=== PATIENT | male | born 1945 | race American Indian/Alaskan Native ===

== ENCOUNTER 2016-07-22 13:39 | Emergency (ER) | payer OTHER, MEDICARE ==
--- NOTE | 2016-07-22 14:21 | CT ---
CLINICAL HISTORY: 71-year-old diabetic male smoker with left upper extremity weakness. SCAN TECHNIQUE: Volume acquisition of data from a semiemergent unenhanced CT scan of the head and br ain obtained with the patient lying supine on the Siemens multislice CT scanner [place], [place]. All data archived in the PAC system for storage, reformatting and study . INTERPRETATION: 1. Uniformly thick bony calvarium and symmetric clear pneumatization of the mastoid/paranasal sinuse s. No sign of skull fracture, underlying brain contusion or epidural/subdural hematoma. 2. Atrophy pattern symmetric with underlying mirror-image normal ventricular system. 3. No new supratentorial or posterior fossa mass lesion identified since 12 March 2016. 4. Scattered areas of decreased attenuation throughout the periventricular white matter cerebrum araseli racteristic of chronic microvascular multi-infarct ischemic disease (similar lesions cerebellum on t he left) also unchanged. 5. No sign of acute intracerebral/intraventricular/subarachnoid bleed. CONCLUSION: Chronic microvascular multi-infarct ischemic changes. No new evidence of intracranial mass, hydrocephalus or acute bleed.
[2016-07-22 14:25] LABS: CHLORIDE,CL 98 mmol/L (101-111); SODIUM,NA 130 mmol/L (135-145)
--- NOTE | 2016-07-22 14:32 | EDM.PDOC ---
ED HPI NEURO - General Chief Complaint: Neurological Problem Stated Complaint: IN BY AMBULANCE Time Seen by Provider: 07/22/16 13:45 Source of Information: Reports: Patient History Limitations: Reports: No limitations - History of Present Illness INITIAL COMMENTS - FREE TEXT/NARRATIVE: patient complained of sudden onset of left upper extremity weakness. Patient denies headache or neck ache. Notes weakness with his arm and inability to talk to her lift up. 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 Unable to do biceps movement. Notes paresthesia/tingling of the upper extremity. No swelling or abnormal sensation to the wrist or fingers. Denies any recent trauma or fall. Denies difficulty with swallowing. No complaints of headache or vision change. No neck pain. No chest pain. Patient denies any new medications. He denies sleeping abnormally such as injury in his arm or his neck. He denies vision change denies headache. Denies chest pain or palpitations. Denies amaurosis fugax. No loss of hearing. Unsure if he has ever had carotid ultrasound. Timing/Duration: Reports: Minutes:, Constant, Sudden onset Location (Neuro Complaint): Reports: lower extremity, left Quality (Neuro Complaint): Reports: tingling, weakness Severity: moderate Associated Symptoms: Denies: confusion, headaches, shortness of breath, syncope , chest pain, cough, diaphoresis, nausea/vomiting - Related Data Allergies/ADRs: Allergies Allergy/AdvReac Type Severity Reaction Status Date / Time No Known Allergies Allergy Verified 07/22/16 13:49 Home Meds: Home Meds Acetaminophen [Mapap] 650 mg PO TID PRN 03/12/16 [History] Citalopram [Celexa] 40 mg PO DAILY 03/12/16 [History] Gabapentin [Neurontin] 1,200 mg PO TID 03/12/16 [History] Lisinopril 10 mg PO DAILY 03/12/16 [History] Simvastatin [Zocor] 20 mg PO DAILY 03/12/16 [History] buPROPion [Wellbutrin] 100 mg PO BID 03/12/16 [History] metFORMIN HCl [Metformin HCl] 500 mg PO DAILY 03/12/16 [History] Albuterol Sulfate [Proair Respiclick] 1 puff INH Q6H PRN 07/22/16 [History] Alendronate [Fosamax] 70 mg PO Q7D@0600 07/22/16 [History] Budesonide/Formoterol [Symbicort 160-4.5 MCG] 2 puff INH BID 07/22/16 [History] Fluocinonide 1 applic TP BID PRN 07/22/16 [History] Fluticasone Propionate [Allergy Relief] 2 spray NASBOTH DAILY PRN 07/22/16 [ History] Insulin NPH/Insulin Reg,Human [NovoLIN 70-30] 36 - 40 unit SUBCUT ASDIRECTED [History] Lidocaine 5% [Lidoderm 5%] 700 mg TOP DAILY 07/22/16 [History] Loratadine [Allergy] 10 mg PO DAILY PRN 07/22/16 [History] Metoprolol Succinate 25 mg PO DAILY 07/22/16 [History] Pantoprazole Sodium 40 mg PO DAILY 07/22/16 [History] Zolpidem Tartrate 5 mg PO BEDTIME PRN 07/22/16 [History] Past Medical History Cardiovascular History: Reports: High cholesterol, Hypertension Gastrointestinal History: Reports: GERD Neurological History: Reports: Neuropathy, diabetic Psychiatric History: Reports: Depression, PTSD Endocrine/Metabolic History: Reports: Diabetes, type II - Past Surgical History Musculoskeletal Surgical History: Reports: Other (see below) Other Musculoskeletal Surgeries/Procedures:: Neuropathy. left ankle surgery Social & Family History - Tobacco Use Smoking Status *Q: Current Every Day Smoker Years of Tobacco use: 55 Packs/Tins Daily: 1 - Caffeine Use Caffeine Use: Reports: Coffee - Recreational Drug Use Recreational Drug Use: No ED ROS GENERAL - Review of Systems Review Of Systems: See Below Constitutional: Reports: no symptoms HEENT: Reports: No symptoms Respiratory: Reports: No Symptoms Cardiovascular: Reports: No symptoms Endocrine: Reports: no symptoms GI/Abdominal: Reports: No symptoms : Reports: no symptoms Musculoskeletal: Reports: no symptoms Skin: Reports: no symptoms Neurological: Reports: Numbness, Tingling, Weakness. Denies: Confusion, Dizziness, Pre-Existing Deficit, Seizure, Syncope, Tremors Psychiatric: Reports: No symptoms Hematologic/Lymphatic: Reports: no symptoms Immunologic: Reports: no symptoms ED EXAM, NEURO - Physical Exam Exam: See Below Exam Limited By: No limitations General Appearance: alert, WD/WN Eye Exam: bilateral eye: PERRL Ears: normal external exam, hearing grossly normal Nose: normal inspection, normal mucosa Throat/Mouth: Normal inspection, Normal lips, Normal oropharynx Head Exam: atraumatic, normocephalic Neck: normal inspection, supple, non-tender. No: carotid bruit, lymphadenopathy (L), lymphadenopathy (R) Respiratory/Chest: no respiratory distress, lungs clear, normal breath sounds Cardiovascular: normal peripheral pulses, regular rate, rhythm, no edema, no JVD , no murmur Neurological: alert, normal mood/affect, CN II-XII intact, other (right upper extremity is 5/5 strength. Bilateral lower extremity 5/5 strength. Equal Achilles and patella reflexes. Normal hip flexion strength against resistance. left extremity is flaccid of the biceps triceps region he is unable to abduct or extend his upper extremity. 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 Biceps reflexes absent. Capillary refill less than 2 seconds. Normal radial pulse. 2. discrimination of the forearm and biceps diminished. Pinprick was not examined. The rest of his neuro exam is unremarkable) DTR: 0: bicep (L), tricep (L), 2+: bicep (R), tricep (R), patella (R), patella ( L), achilles (R), achilles (L) Back Exam: full range of motion Extremities: no pedal edema. No: leg pain Psychiatric: normal affect, normal mood Skin Exam: Warm, Dry Course - Vital Signs Last Recorded V/S: Last Vital Signs Temp 97.7 F 07/22/16 15:24 Pulse 78 07/22/16 15:24 Resp 18 07/22/16 15:24 BP 159/82 H 07/22/16 15:24 Pulse Ox 100 07/22/16 15:24 - Orders/Labs/Meds Orders: Active Orders 24 hr Category Date Time Status EKG Documentation Completion [RC] STAT Care 07/22/16 13:45 Active Labs: Laboratory Tests 07/22/16 07/22/16 07/22/16 Range/Units 13:55 13:55 13:55 WBC 6.8 (5.0-10.0) 10^3/uL RBC 3.99 L (4.6-6.2) 10^6/uL Hgb 12.7 L (14.0-18.0) g/dL Hct 36.9 L (40.0-54.0) % MCV 92.5 (80-100) fL MCH 31.8 (27.0-34.0) pg MCHC 34.4 (33.0-35.0) g/dL Plt Count 169 (150-450) 10^3/uL Neut % (Auto) 61.2 (42.2-75.2) % Lymph % (Auto) 23.8 (20.5-50.1) % [place] % (Auto) 10.0 H (2-8) % Eos % (Auto) 4.6 H (1.0-3.0) % Baso % (Auto) 0.4 (0.0-1.0) % Sodium 130 L (135-145) mmol/L Potassium 4.1 (3.6-5.0) mmol/L Chloride 98 L (101-111) mmol/L Carbon Dioxide 25.0 (21.0-31.0) mmol/L Anion Gap 11.1 BUN 10 (7-18) mg/dL Creatinine 1.0 (0.6-1.3) mg/dL Est Cr Clr Drug Dosing 65.79 mL/min Estimated GFR (MDRD) > 60 BUN/Creatinine Ratio 10.00 Glucose 92 (74-105) mg/dL Calcium 8.9 (8.4-10.2) mg/dl Total Bilirubin 0.4 (0.2-1.0) mg/dL AST 19 (10-42) IU/L ALT 14 (10-60) IU/L Alkaline Phosphatase 91 (42-121) IU/L Troponin I 0.04 H* (0.00-0.02) ng/ml Total Protein 7.1 (6.7-8.2) g/dl Albumin 3.7 (3.2-5.5) g/dl Globulin 3.4 Albumin/Globulin Ratio 1.09 TSH, Ultra Sensitive 1.71 (0.35-7.0) uIu/mL - Re-Assessments/Exams Free Text/Narrative Re-Assessment/Exam: EKG reveals left axis deviation. No ST elevation or depression. CT scan of the head reveals atrophy pattern symmetric with underlying mirror image normal ventricular system. Chronic microvascular multi-infarct ischemic changes. No new evidence of intracranial mass. After consult was obtained with [facility], reexamination shows return of movement of biceps and triceps. Patient has weakness with abduction of the arm and forward extension but he does show improved strength and movement. Reviewed with patient TIA symptoms which are worrisome of an adverse event. Patient did have elevated troponin. 07/22/16 15:23 Departure - Departure Time of Disposition: 15:27 Disposition: DC/Tfer to Other 70 Condition: fair Clinical Impression: Upper extremity weakness, Elevated troponin, Hyponatremia TIA (transient ischemic attack) Qualifiers: Transient cerebral ischemia type: unspecified Qualified Code(s): G45.9 - Transient cerebral ischemic attack, unspecified CAD (coronary artery disease) Qualifiers: Coronary Disease-Associated Artery/Lesion type: unspecified vessel or lesion type [place] vs. transplanted heart: [place] heart Associated angina: without angina Qualified Code(s): I25.10 - Atherosclerotic heart disease of [place] coronary artery without angina pectoris Diabetes Qualifiers: Diabetes mellitus type: type 2 Diabetes mellitus complication status: with neurologic complications Diabetes mellitus complication detail: with polyneuropathy Diabetes mellitus superintendent terminal insulin use: unspecified shelter insulin use status Qualified Code(s): E11.42 - Type 2 diabetes mellitus with diabetic polyneuropathy Forms: ED Department Discharge Additional Instructions: Hospitalist - [facility] accepting - My Orders Last 24 Hours: My Active Orders 07/22/16 13:45 EKG Documentation Completion [RC] STAT - Assessment/Plan Last 24 Hours: My Active Orders 07/22/16 13:45 EKG Documentation Completion [RC] STAT
[2016-07-22 15:24] VITALS: BP 159/82
--- NOTE | 2016-07-23 14:39 | EKG ---
07/22/2016- ROSINA SMITH - A 12-lead EKG shows normal sinus rhythm with heart rate of 76, no significant ST elevation or ST depression noted on this 12-lead EKG. Nonspecific ST changes noted on lead V2, V3. [facility] /[id number]
== END 2016-07-22 15:46 | disposition other institution (70) ==
LOC: DL.ED 13:39
DX: G45.9 Transient cerebral ischemic attack, unspecified (principal); I25.10 Atherosclerotic heart disease of native coronary artery without angina pectoris; E87.1 Hypo-osmolality and hyponatremia; E11.42 Type 2 diabetes mellitus with diabetic polyneuropathy; F32.9 Major depressive disorder, single episode, unspecified; E78.00 Pure hypercholesterolemia, unspecified; I10 Essential (primary) hypertension; F17.210 Nicotine dependence, cigarettes, uncomplicated; Z79.899 Other long term (current) drug therapy; Z79.84 Long term (current) use of oral hypoglycemic drugs; Z79.4 Long term (current) use of insulin
CPT/HCPCS: 36415; 70450; 80053; 84443; 84484; 85025; 93005; 93010; 99284; 99285

== ENCOUNTER 2017-05-08 15:47 | Inpatient (IN) | payer OTHER, MEDICARE ==
[2017-05-08] MEDS ORDERED: Albuterol/Ipratropium 3.0-0.5 MG/3 ML Neb Soln NEB ONE (15:57)
[2017-05-08] MEDS ORDERED: methylPREDNISolone Sodium Succinate 125 MG/2 ML SDV IVPUSH ONE (15:57)
[2017-05-08] MEDS: Sodium Chloride 0.9% 10 ML Syringe FLUSH PRN ×2 (16:03→22:02)
[2017-05-08 16:25] LABS: CHLORIDE,CL 96 mmol/L (101-111); SODIUM,NA 131 mmol/L (135-145)
--- NOTE | 2017-05-08 16:25 | CR ---
Clinical history: 72-year-old female with fever and dyspnea. Interpretation: Abnormal. 1. Several insufficiency fractures lower thoracic and upper lumbar spine that were present on previou s CT images 26 June 2016. 2. Peribronchial "cuffing" and new non-consolidative left infrahilar infiltrate (atelectasis?). Developing pneumonia possible and close clinical correlation requested. 3. Normal cardiac silhouette without alveolar edema or dependent new pleural fluid accumulation. 4. No new lung mass or other focal lobar consolidation. CONCLUSION: Bronchial inflammatory changes and suspicion developing left lower lobe pneumonia.
[2017-05-08] MEDS ORDERED: Levofloxacin/Dextrose 5%-Water 750 MG in Premix Bag 1 BAG IV ONE (16:48)
--- NOTE | 2017-05-08 16:51 | CT ---
Clinical history: 72-year-old male smoker with head trauma, fever and dyspnea (left lower lobe infilt rate). Scan technique: Volume acquisition of data from the head and brain obtained while the patient was lyi ng supine on the Siemens multi slice scanner [place], [place]. All john a archived in the PACS system for storage and study (bone/brain windows). Interpretation: 1. Uniformly thick bony calvarium without sign of skull fracture or underlying brain contusion or abn ormal extracerebral/intracranial epidural or subdural hematoma. 2. Severe cerebral cortical atrophy (cerebellar sparing) also is symmetric with underlying mirror-ruth ge normal ventricular system unchanged when compared directly back to CT images 22 July 2016. 3. Multiple scattered areas of decreased attenuation throughout the periventricular white matter and large area of encephalomalacia posterior parietal lobe of the left. No signs of cerebral edema or acu te intracerebral/intraventricular/subarachnoid bleed. 4. No hydrocephalus. 5. Cerebellum and brainstem unremarkable. 6. Paranasal and mastoid sinuses clear. CONCLUSION: Multi-infarct ischemic changes and severe atrophy unchanged since June 2016 exam. No new evidence of skull fracture, acute brain contusion or intracranial bleed.
[2017-05-08] MEDS ORDERED: Sodium Chloride 0.9% 1,000 ML IV SCH (17:00)
--- NOTE | 2017-05-08 17:48 | EDM.PDOC ---
Scribed by Felicitas Thakur 05/08/17 [id number] for Dimitri Helms MD ED HPI GENERAL MEDICAL PROBLEM - General Chief Complaint: General Stated Complaint: SICK Time Seen by Provider: 05/08/17 15:48 Source of Information: Reports: Patient, EMS, EMS Notes Reviewed, Family, RN, RN Notes Reviewed History Limitations: Reports: No Limitations - History of Present Illness INITIAL COMMENTS - FREE TEXT/NARRATIVE: Patient arrives from home by ambulance with complaint of onset of fever, cough, wheezing and generalized weakness yesterday. Today patient tripped and fell to the floor and hit his head. Denies loss of consciousness,nausea, vomiting or any injury. Admits to fever with shortness of breath and generalized body aches. Duration: Constant Location: Reports: Head, Chest, Generalized Quality: Reports: Ache Severity: Severe Improves with: Reports: None Worsens with: Reports: None Associated Symptoms: Reports: No Other Symptoms - Related Data Allergies Allergy/AdvReac Type Severity Reaction Status Date / Time No Known Allergies Allergy Verified 05/08/17 17:17 Home Meds: Home Meds Acetaminophen [Mapap] 650 mg PO TID PRN 03/12/16 [History] Citalopram [Celexa] 40 mg PO DAILY 03/12/16 [History] Gabapentin [Neurontin] 1,200 mg PO TID 03/12/16 [History] Lisinopril 10 mg PO DAILY 03/12/16 [History] Simvastatin [Zocor] 20 mg PO DAILY 03/12/16 [History] buPROPion [Wellbutrin] 100 mg PO BID 03/12/16 [History] metFORMIN HCl [Metformin HCl] 500 mg PO DAILY 03/12/16 [History] Albuterol Sulfate [Proair Respiclick] 1 puff INH Q6H PRN 07/22/16 [History] Alendronate [Fosamax] 70 mg PO Q7D@0600 07/22/16 [History] Budesonide/Formoterol [Symbicort 160-4.5 MCG] 2 puff INH BID 07/22/16 [History] Fluocinonide 1 applic TP BID PRN 07/22/16 [History] Fluticasone Propionate [Allergy Relief] 2 spray NASBOTH DAILY PRN 07/22/16 [ History] Insulin NPH/Insulin Reg,Human [NovoLIN 70-30] 36 - 40 unit SUBCUT ASDIRECTED [History] Lidocaine 5% [Lidoderm 5%] 700 mg TOP DAILY 07/22/16 [History] Loratadine [Allergy] 10 mg PO DAILY PRN 07/22/16 [History] Metoprolol Succinate 25 mg PO DAILY 07/22/16 [History] Pantoprazole Sodium 40 mg PO DAILY 07/22/16 [History] Zolpidem Tartrate 5 mg PO BEDTIME PRN 07/22/16 [History] Past Medical History Cardiovascular History: Reports: High Cholesterol, Hypertension Gastrointestinal History: Reports: GERD Neurological History: Reports: Neuropathy, Diabetic Psychiatric History: Reports: Depression, PTSD Endocrine/Metabolic History: Reports: Diabetes, Type II - Past Surgical History Musculoskeletal Surgical History: Reports: Other (See Below) Social & Family History - Family History Family Medical History: Noncontributory - Tobacco Use Smoking Status *Q: Current Every Day Smoker Years of Tobacco use: 55 Packs/Tins Daily: 1 - Caffeine Use Caffeine Use: Reports: Coffee - Recreational Drug Use Recreational Drug Use: No ED ROS GENERAL - Review of Systems Review Of Systems: ROS reveals no pertinent complaints other than HPI. ED EXAM, GENERAL - Physical Exam Exam: See Below Exam Limited By: No Limitations General Appearance: Other (frail elderly ill but non-toxic appearing.) Eye Exam: Bilateral Eye: Normal Inspection Ears: Normal External Exam, Normal Canal, Hearing Grossly Normal, Normal TMs Nose: Other Throat/Mouth: Normal Inspection, Normal Lips, Normal Oropharynx, Other (dyr oral membranes) Head: Atraumatic, Normocephalic Neck: Normal Inspection, Supple, Non-Tender, Full Range of Motion Respiratory/Chest: Chest Non-Tender, Decreased Breath Sounds (at bilateral bases.), Rhonchi (left base), Wheezing (inspiratory) Cardiovascular: Regular Rate, Rhythm, Tachycardia GI/Abdominal: Normal Bowel Sounds, Soft, Non-Tender, No Organomegaly, No Distention, No Abnormal Bruit, No Mass (Male) Exam: Deferred Rectal (Males) Exam: Deferred Back Exam: Normal Inspection, Full Range of Motion, NT Extremities: Normal Inspection, Normal Range of Motion, Non-Tender, Normal Capillary Refill, No Pedal Edema Neurological: Alert, Oriented, CN II-XII Intact, Normal Cognition, Normal Gait, Normal Reflexes, No Motor/Sensory Deficits, Other (Glascow coma scale 15 on arrival, 15 at 1 hour and 15 at discharge.) Psychiatric: Normal Affect, Normal Mood Skin Exam: Warm, Dry, Intact, Normal Color, No Rash EKG INTERPRETATION EKG Date: 05/08/17 Time: 01:55 Rhythm: Other (sinus tachycardia) Rate (Beats/Min): 104 [place]: Normal P-Wave: Present QRS: Normal ST-T: Normal QT: Normal Course - Vital Signs Last Recorded V/S: Last Vital Signs Temp 38.7 C H 05/08/17 15:54 Pulse 108 H 05/08/17 15:54 Resp 26 H 05/08/17 15:54 BP 179/77 H 05/08/17 15:54 Pulse Ox 96 05/08/17 15:54 - Orders/Labs/Meds Orders: Active Orders 24 hr Category Date Time Status EKG 12 Lead [EKG Documentation Completion] [] STAT Care 05/08/17 15:55 Active Peripheral IV Care [RC] . DIRECTED Care 05/08/17 15:55 Active RT Aerosol Therapy [] ASDIRECTED Care 05/08/17 15:57 Active CULTURE BLOOD [] Stat Lab 05/08/17 15:57 Received CULTURE BLOOD [] Stat Lab 05/08/17 16:32 Received CULTURE STREP A CONFIRMATION [] Stat Lab 05/08/17 15:53 Results STREP SCRN A RAPID W CULT CONF [] Stat Lab 05/08/17 15:53 Results Levofloxacin/Dextrose 5%-Water [Levaquin in D5W 750 MG/ Med 05/08/17 16:48 Active 150 ML] 750 mg Premix Bag 1 bag IV ONETIME Sodium Chloride 0.9% [Normal Saline] 1,000 ml Med 05/08/17 17:00 Active IV ASDIRECTED Sodium Chloride 0.9% [Saline Flush] Med 05/08/17 15:55 Active 10 ml FLUSH ASDIRECTED PRN Blood Culture x2 Reflex Set [OM.PC] Stat Oth 05/08/17 15:55 Ordered Peripheral IV Insertion Adult [OM.PC] Stat Oth 05/08/17 15:55 Ordered Medication Orders Levofloxacin/Dextrose 750 mg/ (Premix) 150 mls @ 100 mls/hr IV ONETIME ONE Stop: 05/08/17 18:17 Last Admin: 05/08/17 17:06 Dose: 100 mls/hr Sodium Chloride (Normal Saline) 1,000 mls @ 150 mls/hr IV ASDIRECTED ALOK Last Admin: 05/08/17 17:02 Dose: 150 mls/hr Sodium Chloride (Saline Flush) 10 ml FLUSH ASDIRECTED PRN PRN Reason: Keep Vein Open Last Admin: 05/08/17 16:03 Dose: 10 ml Labs: Laboratory Tests 05/08/17 05/08/17 05/08/17 Range/Units 15:57 15:57 15:57 WBC 7.8 (5.0-10.0) 10^3/uL RBC 4.16 L (4.6-6.2) 10^6/uL Hgb 13.6 L (14.0-18.0) g/dL Hct 40.3 (40.0-54.0) % MCV 96.9 D (80-100) fL MCH 32.7 (27.0-34.0) pg MCHC 33.7 (33.0-35.0) g/dL Plt Count 149 L (150-450) 10^3/uL Neut % (Auto) 77.1 H (42.2-75.2) % Lymph % (Auto) 13.1 L (20.5-50.1) % [place] % (Auto) 9.0 H (2-8) % Eos % (Auto) 0.5 L (1.0-3.0) % Baso % (Auto) 0.3 (0.0-1.0) % Sodium 131 L (135-145) mmol/L Potassium 3.6 (3.6-5.0) mmol/L Chloride 96 L (101-111) mmol/L Carbon Dioxide 25.0 (21.0-31.0) mmol/L Anion Gap 13.6 BUN 16 (7-18) mg/dL Creatinine 1.1 (0.6-1.3) mg/dL Est Cr Clr Drug Dosing 59.88 mL/min Estimated GFR (MDRD) > 60 BUN/Creatinine Ratio 14.54 Glucose 229 H (74-105) mg/dL Lactic Acid 1.6 (0.5-2.2) mmol/L Calcium 8.8 (8.4-10.2) mg/dl Total Bilirubin 1.1 H (0.2-1.0) mg/dL AST 22 (10-42) IU/L ALT 13 (10-60) IU/L Alkaline Phosphatase 73 (42-121) IU/L Troponin I < 0.02 (0.00-0.02) ng/ml B-Natriuretic Peptide 350 H (0-100) pg/ml Total Protein 7.6 (6.7-8.2) g/dl Albumin 3.9 (3.2-5.5) g/dl Globulin 3.7 Albumin/Globulin Ratio 1.05 Urine Color (YELLOW) Urine Appearance (CLEAR) Urine pH (5.0-9.0) Ur Specific [place] (1.005-1.030) Urine Protein (NEGATIVE) Urine Glucose (UA) (NEGATIVE) Urine Ketones (NEGATIVE) Urine Occult Blood (NEGATIVE) Urine Nitrite (NEGATIVE) Urine Bilirubin (NEGATIVE) Urine Urobilinogen (0.2-1.0) mg/dL Ur Leukocyte Esterase (NEGATIVE) Urine RBC /HPF Urine WBC (0-5/HPF) /HPF Ur Epithelial Cells /HPF Urine Bacteria (0-FEW/HPF) /HPF Urine Mucus /LPF Urine Other 05/08/17 Range/Units 17:04 WBC (5.0-10.0) 10^3/uL RBC (4.6-6.2) 10^6/uL Hgb (14.0-18.0) g/dL Hct (40.0-54.0) % MCV (80-100) fL MCH (27.0-34.0) pg MCHC (33.0-35.0) g/dL Plt Count (150-450) 10^3/uL Neut % (Auto) (42.2-75.2) % Lymph % (Auto) (20.5-50.1) % [place] % (Auto) (2-8) % Eos % (Auto) (1.0-3.0) % Baso % (Auto) (0.0-1.0) % Sodium (135-145) mmol/L Potassium (3.6-5.0) mmol/L Chloride (101-111) mmol/L Carbon Dioxide (21.0-31.0) mmol/L Anion Gap BUN (7-18) mg/dL Creatinine (0.6-1.3) mg/dL Est Cr Clr Drug Dosing mL/min Estimated GFR (MDRD) BUN/Creatinine Ratio Glucose (74-105) mg/dL Lactic Acid (0.5-2.2) mmol/L Calcium (8.4-10.2) mg/dl Total Bilirubin (0.2-1.0) mg/dL AST (10-42) IU/L ALT (10-60) IU/L Alkaline Phosphatase (42-121) IU/L Troponin I (0.00-0.02) ng/ml B-Natriuretic Peptide (0-100) pg/ml Total Protein (6.7-8.2) g/dl Albumin (3.2-5.5) g/dl Globulin Albumin/Globulin Ratio Urine Color Yellow (YELLOW) Urine Appearance Slightly cloudy (CLEAR) Urine pH 7.0 (5.0-9.0) Ur Specific [place] 1.025 (1.005-1.030) Urine Protein 100 H (NEGATIVE) Urine Glucose (UA) 250 H (NEGATIVE) Urine Ketones Negative (NEGATIVE) Urine Occult Blood Negative (NEGATIVE) Urine Nitrite Negative (NEGATIVE) Urine Bilirubin Negative (NEGATIVE) Urine Urobilinogen 4.0 H (0.2-1.0) mg/dL Ur Leukocyte Esterase Negative (NEGATIVE) Urine RBC 0-5 /HPF Urine WBC Not seen (0-5/HPF) /HPF Ur Epithelial Cells Rare /HPF Urine Bacteria Rare (0-FEW/HPF) /HPF Urine Mucus Few H /LPF Urine Other See note Rapid Strep: Negative. Influenza A and B: Negative. Meds: Medications Generic Name Dose Route Start Last Admin Trade Name Freq PRN Reason Stop Dose Admin Levofloxacin/Dextrose 750 mg/ 150 mls @ 100 mls/hr 05/08/17 16:48 05/08/17 17 :06 Premix IV 05/08/17 18:17 100 mls/hr ONETIME ONE Administration Sodium Chloride 1,000 mls @ 150 mls/hr 05/08/17 17:00 05/08/17 17:02 Normal Saline IV 150 mls/hr ASDIRECTED ALOK Administration Sodium Chloride 10 ml 05/08/17 15:55 05/08/17 16:03 Saline Flush FLUSH 10 ml ASDIRECTED PRN Administration Keep Vein Open Discontinued Medications Generic Name Dose Route Start Last Admin Trade Name Freq PRN Reason Stop Dose Admin Albuterol/Ipratropium 3 ml 05/08/17 15:57 05/08/17 16:03 Duoneb 3.0-0.5 Mg/3 Ml NEB 05/08/17 15:58 3 ml ONETIME ONE Administration Methylprednisolone Sodium Succinate 125 mg 05/08/17 15:57 05/08/17 16:03 Solu-Medrol IVPUSH 05/08/17 15:58 125 mg ONETIME ONE Administration - Radiology Interpretation Free Text/Narrative:: Chest x-ray: Bronchial inflammatory changes and suspicion developing left lower lobe pneumonia. See rad report. CT Head: Multi-infract ischemic changes and severe atrophy unchanged since June 2016 exam. No new evidence of skull fracture, acute brain contusion or intracranial bleed. See rad report. Departure - Departure Time of Disposition: 17:47 (Admit to Dr. Walls) Disposition: Admitted As Inpatient 64 Clinical Impression: Acute exacerbation of chronic obstructive pulmonary disease (COPD) Pneumonia Qualifiers: Pneumonia type: due to unspecified organism Laterality: left Lung location: lower lobe of lung Qualified Code(s): J18.1 - Lobar pneumonia, unspecified organism - Discharge Information Referrals: Medina Philippe I, Jonel, DYANA [Primary Care Provider] - Forms: ED Department Discharge - My Orders Last 24 Hours: My Active Orders 05/08/17 15:53 CULTURE STREP A CONFIRMATION [RM] Stat STREP SCRN A RAPID W CULT CONF [RM] Stat 05/08/17 15:55 EKG 12 Lead [EKG Documentation Completion] [RC] STAT Peripheral IV Care [RC] . DIRECTED Sodium Chloride 0.9% [Saline Flush] 10 ml FLUSH ASDIRECTED PRN Blood Culture x2 Reflex Set [OM.PC] Stat Peripheral IV Insertion Adult [OM.PC] Stat 05/08/17 15:57 RT Aerosol Therapy [RC] ASDIRECTED CULTURE BLOOD [BC] Stat 05/08/17 16:32 CULTURE BLOOD [BC] Stat 05/08/17 16:48 Levofloxacin/Dextrose 5%-Water [Levaquin in D5W 750 MG/150 ML] 750 mg Premix Bag 1 bag IV ONETIME 05/08/17 17:00 Sodium Chloride 0.9% [Normal Saline] 1,000 ml IV ASDIRECTED - Assessment/Plan Last 24 Hours: My Active Orders 05/08/17 15:53 CULTURE STREP A CONFIRMATION [RM] Stat STREP SCRN A RAPID W CULT CONF [RM] Stat 05/08/17 15:55 EKG 12 Lead [EKG Documentation Completion] [RC] STAT Peripheral IV Care [RC] . DIRECTED Sodium Chloride 0.9% [Saline Flush] 10 ml FLUSH ASDIRECTED PRN Blood Culture x2 Reflex Set [OM.PC] Stat Peripheral IV Insertion Adult [OM.PC] Stat 05/08/17 15:57 RT Aerosol Therapy [RC] ASDIRECTED CULTURE BLOOD [BC] Stat 05/08/17 16:32 CULTURE BLOOD [BC] Stat 05/08/17 16:48 Levofloxacin/Dextrose 5%-Water [Levaquin in D5W 750 MG/150 ML] 750 mg Premix Bag 1 bag IV ONETIME 05/08/17 17:00 Sodium Chloride 0.9% [Normal Saline] 1,000 ml IV ASDIRECTED I have read and agree with the documentation that has been completed regarding this visit. By signing this record, I attest that the documentation was completed in my physical presence and is an accurate record of the encounter.
[2017-05-08] MEDS ORDERED: Acetaminophen 325 MG Tab PO PRN (20:14)
[2017-05-08] MEDS ORDERED: Ondansetron 4 MG Tab.DIS PO PRN (20:14)
[2017-05-08] MEDS ORDERED: Loratadine 10 MG Tab PO PRN (20:18)
[2017-05-08] MEDS ORDERED: Fluticasone Propionate Nasal Spray 16 GM Bottle NASBOTH PRN (20:18)
[2017-05-08] MEDS ORDERED: Albuterol 6.7 GM Inhaler INH PRN (20:18)
[2017-05-08] MEDS ORDERED: Insulin Aspart 100 Units/ML 3 ML Pen SUBCUT SCH (20:30)
[2017-05-08] MEDS ORDERED: Non-Formulary Medication 1 Each (Bupropion [Wellbutrin] 100 MG) PO SCH (21:00)
[2017-05-08] MEDS: Aspirin 325 MG Tab PO SCH (21:57)
[2017-05-08] MEDS: Formoterol/Mometasone 200-5 MCG 8.8 GM Inhaler IH SCH (21:58)
[2017-05-08] MEDS: Gabapentin 400 MG Cap PO SCH (21:59)
[2017-05-08] MEDS: Simvastatin 10 MG Tab PO SCH (22:00)
[2017-05-08] MEDS: Furosemide 20 MG/2 ML VIAL IVPUSH SCH (22:01)
[2017-05-08] MEDS: Insulin NPH/Insulin Regular,Human 70-30 100 Units/ML 10 ML Vial SUBCUT PRN (22:57)
[2017-05-08] MEDS: Albuterol/Ipratropium 3.0-0.5 MG/3 ML Neb Soln NEB SCH (22:59)
[2017-05-09] MEDS: Zolpidem 5 MG Tab PO PRN ×2 (00:52→21:46)
--- NOTE | 2017-05-09 00:59 | HP ---
CHIEF COMPLAINT: Fell down this morning. HISTORY OF PRESENTING ILLNESS: Mr. Mehul Villalobos is a 72-year-old male with medical history significant for hypertension, type 2 diabetes mellitus, complicated by neuropathy and nephropathy, chronic kidney disease, history of kon-QF-jxbghewot myocardial infarction in the past, history of chronic tobacco use, cervical radiculopathy, history of cerebrovascular accident, status post loop recorder placement. He ambulates with the help of the walker at home. Fell down at home around 11:00 a.m. and was brought him to the ER. Further workup in the ER, the patient was noted to have fevers and noted to have pneumonia requiring admission to the hospital. At this time, the patient claims that he fell down earlier today at around 11:00 this morning. He was going along with a walker, and he slipped and fell. He could not get up on his own, so called his grandson who came and helped him. He denied any loss of consciousness. He had hit his head. The patient had a CT scan done in the ER which showed no acute pathology. No hemorrhage. No mass effect noted. He complains of having cough with sputum which is greenish-yellow in color for the last 4-5 days. Denies any fevers or chills. No complaints of nausea or vomiting. No complaints of chest pain. No complaints of shortness of breath at this time. No complaints of abdominal pain. No complaints of diarrhea in the last few days. The patient denied any history of chest pains on exertion. No history of dyspnea on exertion. No history of orthopnea or paroxysmal nocturnal dyspnea. The patient denied any history of hematemesis, hematochezia, or melanotic stools. Normal bowel and bladder habits otherwise. REVIEW OF SYSTEMS: A complete review of system including skin, ear, nose, and throat, cardiovascular system, respiratory system, gastrointestinal system, genitourinary system, hematology, oncology, neurology, allergy, immunology, constitutional were all evaluated and were negative except for the above-said notes. PAST MEDICAL HISTORY: Significant for hypertension, type 2 diabetes mellitus, hyperlipidemia, coronary artery disease, history of lxe-CZ-cmtjkdcst myocardial infarction, lumbar spinal stenosis, history of pneumonia in the past. Cervical radiculopathy, status post loop recorder placement. History of chronic tobacco use. History of alcohol use. Diabetes, complicated by neuropathy. SURGICAL HISTORY: Significant for ankle surgery in the past. FAMILY HISTORY: Significant for heart disease in his mother and cancer in his father. Diabetes in his brother. SOCIAL HISTORY: The patient smokes every day. Smokes around 2 to 3 cigarettes every day. No history of alcohol intake. No history of drug use. ALLERGIES: No known drug allergies. HOME MEDICATIONS: Include: 1. Metformin 500 mg daily. 2. Wellbutrin 100 mg twice a day. 3. Zolpidem 5 mg at bedtime as needed. 4. Simvastatin 20 mg daily. 5. Protonix 40 mg daily. 6. Metoprolol succinate 25 mg daily. 7. Loratadine 10 mg daily as needed. 8. Lisinopril 10 mg daily. 9. Lidocaine patch topical daily. 10.NPH insulin 70/30, as directed. 11.Neurontin 1200 three times a day. 12.Celexa 40 mg daily. 13.Symbicort 2 puff inhalation twice a day. 14.Albuterol 1 puff inhalation q.6 hours. 15.Tylenol 650 three times a day as needed. PHYSICAL EXAMINATION: Vital Signs: Temperature of 101.2, pulse of 67, blood pressure of 134/69, respiratory rate of 20, saturating at 97% on room air. General Appearance: The patient is well oriented to time, place, and person. Follows commands spontaneously. Cardiovascular System: S1, S2 heard with normal intensity. No gallops. Respiratory System: Clear to auscultation bilaterally. No wheeze. No crepitations. Abdomen: Soft. Bowel sounds positive. Nontender. No rigidity. No guarding. No rebound tenderness. Extremities: Edema of bilateral lower extremity. Superficial ulcers noted, bilateral lower extremity, more so on the right side. Neurology: No gross focal neurological deficits. LABORATORY DATA: WBC 7.8, hemoglobin 13.6, hematocrit 40.3, platelet count 149. Sodium 131, potassium 3.6, chloride 96, bicarb 25, BUN 16, creatinine 1.1, glucose 229, lactic acid 1.6. B-natriuretic peptide 350. Troponin less than 0.02. AST 22, ALT 13. ASSESSMENT: 1. Pneumonia. 2. Possible qejux-qy-vxadyjb congestive heart failure secondary to diastolic dysfunction. Recent echocardiogram shows ejection fraction of 55% to 60%. 3. Hypertension. 4. Type 2 diabetes mellitus. 5. Hyperlipidemia. 6. History of cerebrovascular accident. 7. Coronary artery disease. 8. Chronic obstructive pulmonary disease. PLAN: 1. Pneumonia. The patient is noted to have pneumonia as per the chest x-ray, but the patient denied any fevers or chills. The patient does not have leukocytosis but noted to have high-grade temperatures. We will obtain blood cultures, sputum cultures. We will start him on IV antibiotic with Levaquin, and we will follow the culture reports and titrate the antibiotics. 2. Dzjut-rh-tkwqdps congestive heart failure. The patient noted to have elevated B-natriuretic peptide. Mild crepitations at the bases on lung exam and also pulmonary venous congestion on the chest x-ray along with edema to the lower extremity suggestive of cjini-cr-qqcgnmq congestive heart failure. We will discontinue IV fluids for now and have him on Lasix. We will recheck a BNP in the a.m. We will closely follow. 3. Hyponatremia. This could be hypervolemic hyponatremia from CHF. We will get a BMP in the a.m. 4. Chronic obstructive pulmonary disease. The patient noted to be on inhalation treatment. We will have him on nebulizer treatment. No wheeze appreciated at this time. Try to maintain saturations around 95% on oxygen. 5. Type 2 diabetes mellitus. The patient is on insulin regimen as well as metformin. We will hold the metformin while in the hospital. We will check his fingersticks with each meal, have him on supplemental scale insulin as needed for additional coverage of his blood glucose. 6. Coronary artery disease. The patient denied any ongoing chest pains, and his troponin is negative. We will follow the 12-lead EKG done in the ER. 7. Code status. The patient wants to be full code. We discussed with Dr. Helms regarding the plan of care. Reviewed the labs and medications. Reviewed the old charts. [facility] /[id number]
[2017-05-09] MEDS ORDERED: Insulin NPH/Insulin Regular,Human 70-30 100 Units/ML 10 ML Vial SUBCUT SCH (06:00)
[2017-05-09] MEDS: Pantoprazole 40 MG Tab.CR PO SCH (06:12)
[2017-05-09 06:58] LABS: CHLORIDE,CL 99 mmol/L (101-111); SODIUM,NA 133 mmol/L (135-145)
[2017-05-09] MEDS: Citalopram 20 MG Tab PO SCH (09:22)
[2017-05-09] MEDS: Metoprolol Succinate 25 MG Tab.ER PO SCH (09:22)
[2017-05-09] MEDS: Gabapentin 400 MG Cap PO SCH ×3 (09:22→21:34)
[2017-05-09] MEDS: Lisinopril 10 MG Tab PO SCH (09:23)
[2017-05-09] MEDS: Furosemide 20 MG/2 ML VIAL IVPUSH SCH ×2 (09:23→13:06)
[2017-05-09] MEDS: Albuterol/Ipratropium 3.0-0.5 MG/3 ML Neb Soln NEB SCH ×3 (09:23→22:59)
[2017-05-09] MEDS: Insulin Aspart 100 Units/ML 3 ML Pen SUBCUT SCH ×4 (09:24→21:35)
[2017-05-09] MEDS: Lidocaine 5% 700 MG Patch TOP SCH (09:24)
[2017-05-09] MEDS: Enoxaparin 40 MG/0.4 ML Syringe SUBCUT SCH (09:24)
[2017-05-09] MEDS: Formoterol/Mometasone 200-5 MCG 8.8 GM Inhaler IH SCH ×2 (09:25→21:34)
[2017-05-09] MEDS: Remove Patch **LIDOCAINE TRDERM SCH (09:30)
--- NOTE | 2017-05-09 15:18 | PN ---
DATE: 05/09/2017 HISTORY OF PRESENT ILLNESS: Mr. Mehul Villalobos is a 72-year-old male with medical history significant for hypertension, type 2 diabetes mellitus, chronic kidney disease, history of cxn-ZO-vyvkqyehz myocardial infarction in the past, history of chronic tobacco use, cervical radiculopathy, admitted to the hospital with complaints of increasing shortness of breath and was noted to have possible pneumonia along with acute on chronic congestive heart failure secondary to diastolic dysfunction. For the last 24 hours, the patient was started on IV Lasix. He is noted to have a negative balance of 1.5 L. He denies any chest pain. No shortness of breath. No abdominal pain. No nausea. No vomiting. No diarrhea. REVIEW OF SYSTEMS: Cardiovascular, respiratory, gastrointestinal, neurology, constitutional were all evaluated. PHYSICAL EXAMINATION: Vital Signs: Temperature of 98.9, pulse of 78, blood pressure 116/64, respiratory rate 20, saturating at 94% on room air. General Appearance: The patient is well oriented to time, place, and person. Follows commands spontaneously. Cardiovascular System: S1, S2 heard with normal intensity. A grade 3 x 6 systolic murmur appreciated. Respiratory System: Bilateral crepitations at the bases. No wheeze. Abdomen: Soft. Bowel sounds positive. Nontender. No rigidity. Extremities: Edema to bilateral lower extremities along the superficial skin ulcerations noted Neurology: No gross focal neurological deficit. MEDICATIONS: Reviewed. Continue with: 1. Tylenol 650 every 4 hours as needed for pain. 2. DuoNeb 3 mL nebulizer every 8 hours. 3. Aspirin 325 mg at bedtime. 4. Lovenox 40 mg subcutaneous daily. 5. Flonase as needed. 6. Lasix 30 mg IV twice a day. 7. Neurontin 1200 mg 3 times a day. 8. NovoLog supplemental scale 70/30, 35 units subcu as needed for hyperglycemia. 9. Lisinopril 10 mg daily. 10.Claritin 10 mg daily. 11.Toprol-XL 25 mg daily. 12.Protonix 40 mg daily. 13.Zocor 20 mg at bedtime. 14.Ambien 5 mg at bedtime as needed. LABORATORY DATA: Reviewed. WBC 4.5, hemoglobin 12.5, hematocrit 36.9, platelet count 144. Sodium 133, potassium 3.8, chloride 99, bicarb 25, BUN 18, creatinine 1.1, and glucose 111. BNP 494. ASSESSMENT: 1. Acute on chronic congestive heart failure secondary to diastolic dysfunction with ejection fraction of 55% to 60%. 2. Possible pneumonia. 3. Hypertension. 4. Hyperlipidemia. 5. History of cerebrovascular accident. 6. Coronary artery disease. 7. Chronic obstructive pulmonary disease. PLAN: 1. Pneumonia. The patient was started on IV antibiotics. We will follow the culture reports and titrate the antibiotics. 2. Acute on chronic congestive heart failure. We will increase the Lasix to 30 mg IV q.12 hourly. Closely monitor input, output, and the patient had negative balance of 1.5 L after getting admitted to the hospital. We will recheck a BMP and a BNP in a.m. 3. Hyponatremia, improved. 4. Chronic obstructive pulmonary disease, remains stable. Continue with current inhalation treatment. The patient will be encouraged to use incentive spirometer and flutter valve. 5. Type 2 diabetes mellitus. Continue to hold the metformin. Continue with insulin regimen while in the hospital. Use supplemental scale insulin as needed for additional coverage of his blood glucose. 6. Coronary artery disease, remains stable. Troponins remain negative thus far, on the lower side at 0.03. Could be resulting from his underlying congestive heart failure exacerbation. 7. Discussed with family members at bedside. [facility] /[id number]
[2017-05-09] MEDS ORDERED: Levofloxacin/Dextrose 5%-Water 500 MG in Premix Bag 1 BAG IV SCH (16:00)
[2017-05-09] MEDS: Sodium Chloride 0.9% 10 ML Syringe FLUSH PRN (16:18)
[2017-05-09] MEDS: Insulin NPH/Insulin Regular,Human 70-30 100 Units/ML 10 ML Vial SUBCUT PRN (17:29)
[2017-05-09] MEDS: Aspirin 325 MG Tab PO SCH (21:34)
[2017-05-09] MEDS: Simvastatin 10 MG Tab PO SCH (21:35)
[2017-05-10] MEDS: Pantoprazole 40 MG Tab.CR PO SCH (05:08)
[2017-05-10] MEDS: Albuterol/Ipratropium 3.0-0.5 MG/3 ML Neb Soln NEB SCH (07:12)
[2017-05-10 08:17] VITALS: BP 140/62
[2017-05-10] MEDS: Insulin Aspart 100 Units/ML 3 ML Pen SUBCUT SCH ×2 (08:17→12:04)
[2017-05-10] MEDS: Lidocaine 5% 700 MG Patch TOP SCH (08:59)
[2017-05-10] MEDS: Citalopram 20 MG Tab PO SCH (08:59)
[2017-05-10] MEDS: Metoprolol Succinate 25 MG Tab.ER PO SCH (08:59)
[2017-05-10] MEDS: Enoxaparin 40 MG/0.4 ML Syringe SUBCUT SCH (08:59)
[2017-05-10] MEDS: Lisinopril 10 MG Tab PO SCH (09:00)
[2017-05-10] MEDS: Furosemide 20 MG/2 ML VIAL IVPUSH SCH (09:00)
[2017-05-10] MEDS: Gabapentin 400 MG Cap PO SCH ×2 (09:00→14:34)
[2017-05-10] MEDS: Formoterol/Mometasone 200-5 MCG 8.8 GM Inhaler IH SCH (09:01)
[2017-05-10] MEDS: Remove Patch **LIDOCAINE TRDERM SCH (10:33)
[2017-05-11] MEDS ORDERED: Furosemide 40 MG Tab PO SCH (09:00)
[2017-05-11] MEDS ORDERED: Furosemide 20 MG Tab PO SCH (09:00)
--- NOTE | 2017-05-12 08:42 | DISCH ---
ADMITTING DIAGNOSES: 1. Pneumonia. 2. Acute on chronic congestive heart failure secondary to diastolic dysfunction with ejection fraction of 55-60% from recent echocardiogram. 3. Hypertension. 4. Hyponatremia. DISCHARGE DIAGNOSES: 1. Pneumonia resolved with IV antibiotics. 2. Acute on chronic congestive heart failure secondary to diastolic dysfunction, improved with Lasix. 3. Chronic obstructive pulmonary disease, remains stable. HISTORY OF PRESENTING ILLNESS: Mr. Mehul Villalobos is a 72-year-old male with medical history significant for hypertension, type 2 diabetes mellitus complicated with neuropathy and nephropathy, chronic kidney disease, chronic tobacco use admitted to the hospital with complaints of increasing shortness of breath, weakness, and had a fall prior to coming to the hospital. The patient had a CT scan of the head done at the time of admission, which did not show any acute pathology. The patient was noted to have elevated B-natriuretic peptide and chest x-ray suggestive of infiltrative process. The patient was also noted to have fevers at the time of admission. He was admitted and was started on IV antibiotic with Levaquin. He was also started on IV Lasix. The patient had an elevated BNP up to 494 on this admission. After treatment, his BNP is down to 87 at the time of discharge. He responded well to the treatment. He is able to ambulate well without any difficulty. He is discharged home in stable condition. He is advised to follow with his primary care physician next 1 week of time. DISCHARGE MEDICATIONS: Include: 1. Tylenol 650, 3 times a day as needed for pain. 2. Albuterol 1 puff inhalation every 6 hours as needed for shortness of breath. 3. Fosamax 70 mg every 7 days. 4. Aspirin 325 mg daily. 5. Symbicort 2 puffs inhalation twice a day. 6. Vitamin D3 of 2000 units daily. 7. Celexa 40 mg daily. 8. Ferrous sulfate 325 mg twice a day. 9. Fluocinonide one topical twice a day as needed for rash. 10.Allergy relief 2 sprays nostrils as needed for allergies. 11.Lasix 20 mg daily. 12.Neurontin 1200 mg 3 times a day. 13.Novolin 70/30, 36 to 40 units as needed. 14.Lidocaine patch topical daily. 15.Lisinopril 10 mg daily. 16.Loratadine 10 mg daily. 17.Metoprolol succinate 25 mg daily. 18.Protonix 40 mg daily. 19.Zocor 20 mg daily. 20.Zolpidem 5 mg at bedtime as needed for sleep. 21.Wellbutrin 100 mg twice a day. 22.Metformin 500 mg daily. 23.Levaquin 500 mg daily. PHYSICAL EXAMINATION: Vital Signs: On the day of discharge temperature of 100.8, pulse of 88, blood pressure 140/62, respiratory rate 18, saturating at 95% on room air. General Appearance: The patient is well oriented to time, place, and person. Follows commands spontaneously. Cardiovascular System: S1, S2 heard with normal intensity. No gallops. Respiratory System: Clear to auscultation bilaterally. No wheeze. No crepitations. Abdomen: Soft. Bowel sounds positive. Nontender. No rigidity. Extremities: No edema bilateral lower extremities. Neurological: No gross focal neurological deficit. CONDITION ON ADMISSION: Poor. CONDITION ON DISCHARGE: Stable. DISPOSITION: Discharged to home. ACTIVITY: As tolerated. DIET: Cardiac healthy diet with consistent carbohydrate diet. FOLLOWUP: Follow with primary care physician in next 1 week of time. [facility] /[id number]
--- NOTE | 2017-05-12 09:58 | EKG ---
05/08/2017- ROSINA SMITH 12-lead EKG shows normal sinus rhythm with sinus tachycardia with heart rate of 104. No significant ST elevation or ST depression noted on this 12-lead EKG. Nonspecific ST-T wave changes noted on lead V2, V3. [facility] /[id number]
--- NOTE | 2017-05-12 10:01 | EKG ---
05/08/2017- ROSINA SMITH 12-lead EKG shows normal sinus rhythm with sinus tachycardia with a heart rate of 104. No significant ST elevation or ST depression noted on this 12-lead EKG. [facility] /[id number]
== END 2017-05-10 13:40 | disposition home or self-care (01) | DRG 193 ==
LOC: DL.ED 15:47 → DL.MS 18:10 → OBSVTOIN 20:14
PROVIDERS: ADMIT Internal Medicine; ATTEND Internal Medicine
DX: J18.9 Pneumonia, unspecified organism (principal); I50.33 Acute on chronic diastolic (congestive) heart failure; E87.1 Hypo-osmolality and hyponatremia; I13.0 Hypertensive heart and chronic kidney disease with heart failure and stage 1 through stage 4 chronic kidney disease, or unspecified chronic kidney disease; J44.1 Chronic obstructive pulmonary disease with (acute) exacerbation; J44.9 Chronic obstructive pulmonary disease, unspecified; I10 Essential (primary) hypertension; K21.9 Gastro-esophageal reflux disease without esophagitis; E11.40 Type 2 diabetes mellitus with diabetic neuropathy, unspecified; F17.200 Nicotine dependence, unspecified, uncomplicated; Z79.84 Long term (current) use of oral hypoglycemic drugs; Z79.4 Long term (current) use of insulin; Z79.899 Other long term (current) drug therapy; I12.9 Hypertensive chronic kidney disease with stage 1 through stage 4 chronic kidney disease, or unspecified chronic kidney disease; N18.9 Chronic kidney disease, unspecified; W19.XXXA Unspecified fall, initial encounter; E78.5 Hyperlipidemia, unspecified; Z86.73 Personal history of transient ischemic attack (TIA), and cerebral infarction without residual deficits; I25.10 Atherosclerotic heart disease of native coronary artery without angina pectoris; I25.2 Old myocardial infarction; E11.21 Type 2 diabetes mellitus with diabetic nephropathy; R53.1 Weakness; S09.90XA Unspecified injury of head, initial encounter
CPT/HCPCS: 36415; 70450; 71046; 80048; 80053; 81001; 82962; 83605; 83880; 84484; 85025; 85027; 87040; 87081; 87430; 87804; 93005; 93010; 94010; 94640; 96361; 96374; 97162-GP; 97165-GO; 97530-GO; 97535-GO; 99285; A9270-GY; J1650; J1815-GY; J1940; J1956; J2930; J7030; J7050

== ENCOUNTER 2017-09-03 05:12 | Day surgery (SDC) | payer MEDICARE, OTHER ==
[2017-09-03] MEDS ORDERED: Dextrose 5%-0.45% NaCl 1,000 ML IV SCH ×2 (06:10→06:30)
[2017-09-03] MEDS ORDERED: Midazolam 1 MG/ML 2 ML SDV ONE (06:14)
[2017-09-03] MEDS ORDERED: fentaNYL 100 MCG/2 ML SDV ONE (06:14)
[2017-09-03] MEDS ORDERED: Sodium Chloride 0.9% 10 ML Syringe FLUSH PRN (06:25)
[2017-09-03] MEDS ORDERED: fentaNYL 100 MCG/2 ML SDV IV ONE ×2 (06:30→06:31)
[2017-09-03] MEDS ORDERED: Midazolam 1 MG/ML 2 ML SDV IV ONE (06:31)
--- NOTE | 2017-09-03 09:31 | OR ---
DATE: 09/03/2017 PROCEDURE PERFORMED: Total colonoscopy. INSTRUMENT USED: CF-H180AL Olympus videocolonoscope. PREMEDICATIONS: Fentanyl 100 mcg intravenous and Versed 1 mg intravenous. Nasal 2 L O2 cannula. The procedure was done under pulse oximetry, BP recording, and test inspection engineer. INDICATION: Screening colonoscopic examination is done for detection of any polypoid lesions and removal, endoscopic hemostasis therapy if needed. DESCRIPTION OF PROCEDURE: Initial rectal exam was unremarkable. Rigid anoscopy showed small internal hemorrhoids without bleeding from them. The colonoscope was passed with ease up to the ileocecal area, photographs were taken of the cecum identified by double-bulged ileocecal folds. No bleeding was noted from any of the visualized areas at the commencement of the examination. There was some amount of fecal material that had to be aspirated. The bowel preparation was adequate. Diffuse pigmentation was noted in the colon consistent with melanosis coli. No stricture. No vascular ectasia. No large isolated ulcerations seen. No evidence of diffuse inflammatory bowel disease in the form of friability, contact bleeding, or ulcerations. No polyp or tumor mass identified. Probing the proximal sides of folds and flexures, using adequate distention and clearing of the stool material, withdrawal of the scope was made, cecum to rectum time over 6 minutes. No bleeding was noted from any of the visualized areas at the completion of examination. IMPRESSION: 1. Internal hemorrhoids. 2. Melanosis coli. The patient tolerated the procedure well. [facility] /[id number]
[2017-09-03 10:38] VITALS: BP 154/73
--- NOTE | 2017-09-03 10:55 | LETTER ---
09/03/2017 Kamryn Herbert, [facility] [address] [place] [id number] RE: ROSINA SMITH Jeyson : 1945 Dear Ms. Herbert: Mr. Rosina Smith had colonoscopic examination done this morning and he tolerated the procedure well. I herewith send a copy of the endoscopy note and photographs for your review. Thank you. Sincerely, [facility] /[id number]
== END 2017-09-03 08:55 | disposition home or self-care (01) ==
LOC: DL.ENDO 05:12
PROVIDERS: ATTEND Internal Medicine Gastroenterology
DX: Z12.11 Encounter for screening for malignant neoplasm of colon (principal); K64.8 Other hemorrhoids; K63.89 Other specified diseases of intestine; I11.0 Hypertensive heart disease with heart failure; I50.9 Heart failure, unspecified; E11.9 Type 2 diabetes mellitus without complications; J44.9 Chronic obstructive pulmonary disease, unspecified; F17.210 Nicotine dependence, cigarettes, uncomplicated; E66.09 Other obesity due to excess calories; F32.9 Major depressive disorder, single episode, unspecified; Z79.82 Long term (current) use of aspirin
CPT/HCPCS: 45378; J7042; J2250; J3010

== ENCOUNTER 2017-11-16 20:50 | Inpatient (IN) | payer OTHER, MEDICARE ==
--- NOTE | 2017-11-16 21:50 | EDM.PDOC ---
ED HPI GENERAL MEDICAL PROBLEM - General Chief Complaint: General Stated Complaint: AMBULANCE-FALL Time Seen by Provider: 11/16/17 21:46 Source of Information: Reports: Patient, Family History Limitations: Reports: No Limitations - History of Present Illness INITIAL COMMENTS - FREE TEXT/NARRATIVE: family states pt fell and did hit head and also his left foot been red and swollen. pt states head feels fine not sure if he hit it but his left foot hurts more from infection he thinks. - Related Data Allergies Allergy/AdvReac Type Severity Reaction Status Date / Time No Known Allergies Allergy Verified 05/08/17 17:17 Home Meds: Home Meds Acetaminophen [Mapap] 650 mg PO TID PRN 03/12/16 [History] Citalopram [Celexa] 40 mg PO DAILY 03/12/16 [History] Gabapentin [Neurontin] 1,200 mg PO TID 03/12/16 [History] Simvastatin [Zocor] 20 mg PO BEDTIME 03/12/16 [History] buPROPion [Wellbutrin] 100 mg PO BID 03/12/16 [History] metFORMIN HCl [Metformin HCl] 500 mg PO DAILY 03/12/16 [History] Albuterol Sulfate [Proair Respiclick] 1 puff INH Q6H PRN 07/22/16 [History] Alendronate [Fosamax] 70 mg PO Q7D@0600 07/22/16 [History] Budesonide/Formoterol [Symbicort 160-4.5 MCG] 2 puff INH BID 07/22/16 [History] Fluocinonide 1 applic TP BID PRN 07/22/16 [History] Fluticasone Propionate [Allergy Relief] 2 spray NASBOTH DAILY PRN 07/22/16 [ History] Insulin NPH/Insulin Reg,Human [NovoLIN 70-30] 36 - 40 unit SUBCUT ASDIRECTED [History] Lidocaine 5% [Lidoderm 5%] 700 mg TOP DAILY 07/22/16 [History] Loratadine [Allergy] 10 mg PO DAILY PRN 07/22/16 [History] Metoprolol Succinate 25 mg PO DAILY 07/22/16 [History] Pantoprazole Sodium 40 mg PO DAILY 07/22/16 [History] Zolpidem Tartrate 5 mg PO BEDTIME PRN 07/22/16 [History] Aspirin [Aspirin EC] 325 mg PO DAILY 05/08/17 [History] Cholecalciferol (Vitamin D3) [Vitamin D3] 2,000 units PO DAILY 05/08/17 [History ] Ferrous Sulfate 325 mg PO BID 05/08/17 [History] Non-Formulary Medication [NF Drug] 1 drop EYEBOTH QID PRN 05/08/17 [History] Furosemide [Lasix] 20 mg PO DAILY #30 tablet 05/10/17 [Rx] Lisinopril 5 mg PO DAILY #30 tablet 05/10/17 [Rx] Past Medical History HEENT History: Reports: Cataract, Impaired Vision, Other (See Below) Other HEENT History: Wears reading glasses, and has dry eyes Cardiovascular History: Reports: Heart Failure, High Cholesterol, Hypertension, Other (See Below) Other Cardiovascular History: heart monitor implant Respiratory History: Reports: COPD, Pneumonia, Recurrent Gastrointestinal History: Reports: GERD Genitourinary History: Reports: None Musculoskeletal History: Reports: None Neurological History: Reports: CVA, Neuropathy, Diabetic Psychiatric History: Reports: Depression, PTSD Endocrine/Metabolic History: Reports: Diabetes, Type II, Obesity/BMI 30+ Hematologic History: Reports: None Immunologic History: Reports: None Oncologic (Cancer) History: Reports: None Dermatologic History: Reports: Other (See Below) Other Dermatologic History: Open sores to lower legs- uses Lidex cream prn - Infectious Disease History Infectious Disease History: Reports: Chicken Pox, Measles, Mumps - Past Surgical History HEENT Surgical History: Reports: Cataract Surgery Cardiovascular Surgical History: Reports: None, Other (See Below) 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 ED EXAM, GENERAL - Physical Exam Exam: See Below Exam Limited By: No Limitations General Appearance: Alert, WD/WN, No Apparent Distress Eye Exam: Bilateral Eye: PERRL (pupils ess ER @ 4mm) Ears: Hearing Grossly Normal Throat/Mouth: Normal Voice, No Airway Compromise Head: Other (minimal left parietal tenderness. no O/B) Neck: Non-Tender, Full Range of Motion Respiratory/Chest: No Respiratory Distress Cardiovascular: Regular Rate, Rhythm, No Edema GI/Abdominal: Soft, Non-Tender Back Exam: Normal Inspection Extremities: Other (left foot leg erythematous swollen tender, no lymphangitis) Neurological: Alert, Oriented, Normal Cognition, No Motor/Sensory Deficits Psychiatric: Normal Affect, Normal Mood Skin Exam: Warm, Dry, Normal Color Lymphatic: No Adenopathy Course - Vital Signs Last Recorded V/S: Last Vital Signs Temp 37.0 C 11/16/17 22:19 Pulse 62 11/16/17 22:19 Resp 16 11/16/17 22:19 BP 130/84 11/16/17 22:19 Pulse Ox 100 11/16/17 22:19 - Orders/Labs/Meds Orders: Active Orders 24 hr Category Date Time Status Foot Comp Min 3V Lt [CR] Urgent Exams 11/16/17 23:18 Ordered CULTURE BLOOD [BC] Stat Lab 11/16/17 21:58 Received Labs: Laboratory Tests 11/16/17 11/16/17 11/16/17 Range/Units 21:58 21:58 21:58 WBC 10.1 H (5.0-10.0) 10^3/uL RBC 3.82 L (4.6-6.2) 10^6/uL Hgb 12.2 L (14.0-18.0) g/dL Hct 37.1 L (40.0-54.0) % MCV 97.1 (80-100) fL MCH 31.9 (27.0-34.0) pg MCHC 32.9 L (33.0-35.0) g/dL Plt Count 151 (150-450) 10^3/uL Neut % (Auto) 69.2 (42.2-75.2) % Lymph % (Auto) 16.1 L (20.5-50.1) % Deuel % (Auto) 12.3 H (2-8) % Eos % (Auto) 2.2 (1.0-3.0) % Baso % (Auto) 0.2 (0.0-1.0) % Sodium 133 L (135-145) mmol/L Potassium 3.9 (3.6-5.0) mmol/L Chloride 100 L (101-111) mmol/L Carbon Dioxide 26.0 (21.0-31.0) mmol/L Anion Gap 10.9 BUN 22 H (7-18) mg/dL Creatinine 1.2 (0.6-1.3) mg/dL Est Cr Clr Drug Dosing 54.89 mL/min Estimated GFR (MDRD) 59 BUN/Creatinine Ratio 18.33 Glucose 165 H (74-105) mg/dL Lactic Acid 1.0 (0.5-2.2) mmol/L Calcium 8.5 (8.4-10.2) mg/dl Total Bilirubin 0.7 (0.2-1.0) mg/dL AST 16 (10-42) IU/L ALT 14 (10-60) IU/L Alkaline Phosphatase 90 (42-121) IU/L Total Protein 6.7 (6.7-8.2) g/dl Albumin 3.5 (3.2-5.5) g/dl Globulin 3.2 Albumin/Globulin Ratio 1.09 - Re-Assessments/Exams Free Text/Narrative Re-Assessment/Exam: 11/16/17 23:[address] Scott who evaluated pt and admitted pt. Departure - Departure Time of Disposition: 23:25 Disposition: Admitted As Inpatient 64 Condition: Fair Clinical Impression: Cellulitis of foot - Discharge Information Forms: ED Department Discharge - My Orders Last 24 Hours: My Active Orders 11/16/17 21:58 CULTURE BLOOD [BC] Stat 11/16/17 23:18 Foot Comp Min 3V Lt [CR] Urgent - Assessment/Plan Last 24 Hours: My Active Orders 11/16/17 21:58 CULTURE BLOOD [BC] Stat 11/16/17 23:18 Foot Comp Min 3V Lt [CR] Urgent
[2017-11-16 22:35] LABS: ANION GAP 10.9
[2017-11-16] MEDS ORDERED: Acetaminophen/oxyCODONE 325-5 MG Tab PO PRN (23:42)
[2017-11-16] MEDS ORDERED: Acetaminophen 325 MG Tab PO PRN (23:42)
[2017-11-16] MEDS ORDERED: Zolpidem 5 MG Tab PO PRN (23:51)
--- NOTE | 2017-11-17 00:32 | HP ---
DATE OF SERVICE: CHIEF COMPLAINT: History of fall and left foot pain. HISTORY OF PRESENT ILLNESS: The patient is a 72-year-old gentleman, who was admitted through the emergency room because of a fall, and he mentioned that he did hit his head and was also complaining of left foot pain. Because of the foot pain, he lost his balance, that is why he fell. The foot pain just all started today. The patient denies any fever or chills. Denies any chest pain, shortness of breath, abdominal pain, nausea or vomiting, nor any other complaints, but according to his daughter, there was some redness that was noted initially on the plantar aspect of the left foot, but now, it seems that it is expanding up to the left lower leg. Because of this in the emergency room, he was advised to be admitted because of the cellulitis. PAST MEDICAL HISTORY: Remarkable for osteoporosis and compression fracture, diabetes mellitus, gastroesophageal reflux, hypertension, history of TIA, coronary artery disease. FAMILY HISTORY: Noncontributory. SOCIAL HISTORY: The patient is . Smokes occasionally but nonalcohol drinker. HOME MEDICATIONS: 1. Fosamax. 2. Albuterol. 3. Tylenol. 4. Flonase. 5. Ferrous sulfate. 6. Celexa. 7. Vitamin D3. 8. Symbicort. 9. Aspirin. 10.Lidoderm. 11.NPH insulin. 12.Gabapentin. 13.Lasix. 14.Simvastatin. 15.Protonix. 16.Metoprolol. 17.Lisinopril. 18.Wellbutrin. 19.Zolpidem. ALLERGIES: No known drug allergies. REVIEW OF SYSTEMS: As in HPI. The rest of the review of systems is negative. PHYSICAL EXAMINATION: General: A very pleasant gentleman. He is alert and oriented. He is accompanied by his family, but not in any acute distress. Vital Signs: Blood pressure is 130/84, pulse 62, respiration rate 16, temperature of 98.6. SHEENT: Normocephalic. There is pink palpebral conjunctiva. Sclerae anicteric. No JVD. No lymphadenopathy. Heart: Regular rate and rhythm. Normal S1 and S2. No gallops. No rubs. Lungs: Equal bilaterally. No crackles. No wheezing. Abdomen: Mild to moderately obese, but soft and nontender. Bowel sounds positive. Extremities: Remarkable for the redness and mild swelling and tenderness on the left foot, more on the plantar aspect. This is compatible with cellulitis. LABORATORY WORKUP: CBC; WBC is 10.1, hemoglobin is 12.2, hematocrit is 37.1, platelet is 151. Comp panel; sodium is 133, chloride of 100, glucose is 165, lactic acid is 1, which is within normal limits. CAT scan of the head did not show any fracture or acute intracranial finding. ADMITTING DIAGNOSES: 1. Cellulitis of the left foot. 2. Type 2 diabetes mellitus. 3. History of compression fracture. 4. Coronary artery disease. 5. Chronic obstructive pulmonary disease. TREATMENT PLAN: The patient is going to be admitted to Acute Care General Medicine Floor. Blood cultures will be sent. He will be started empirically on vancomycin IV and Levaquin IV. The rest of the management as necessary, and he will be resumed on some of his home medication. The patient is code level 2, which is no intubation or cardiac resuscitation. [facility] /[id number]
[2017-11-17] MEDS: Enoxaparin 40 MG/0.4 ML Syringe SUBCUT SCH ×2 (00:51→20:50)
[2017-11-17] MEDS: Sodium Chloride 0.9% 1,000 ML IV SCH ×2 (00:52→18:18)
[2017-11-17] MEDS: Levofloxacin/Dextrose 5%-Water 500 MG in Premix Bag 1 BAG IV SCH ×2 (00:52→23:55)
[2017-11-17] MEDS ORDERED: Vancomycin 1.5 GM in Sodium Chloride 0.9% 500 ML IV SCH (01:00)
[2017-11-17] MEDS: Pantoprazole 40 MG Tab.CR PO SCH (05:40)
[2017-11-17] MEDS: Formoterol/Mometasone 200-5 MCG 8.8 GM Inhaler IH SCH ×3 (05:42→17:12)
[2017-11-17] MEDS: Gabapentin 400 MG Cap PO SCH ×3 (08:36→20:50)
[2017-11-17] MEDS: Lisinopril 5 MG Tab PO SCH (08:37)
[2017-11-17] MEDS: Aspirin 325 MG Tab.EC PO SCH (08:37)
[2017-11-17] MEDS: Metoprolol Succinate 25 MG Tab.ER PO SCH (08:38)
[2017-11-17] MEDS: Ferrous Sulfate 325 MG Tab PO SCH ×2 (08:38→20:49)
[2017-11-17] MEDS: Furosemide 20 MG Tab PO SCH (08:38)
[2017-11-17] MEDS: Citalopram 20 MG Tab PO SCH (08:39)
[2017-11-17] MEDS: Cholecalciferol (Vitamin D3) 400 Unit Tab PO SCH (08:39)
[2017-11-17] MEDS: Lidocaine 5% 700 MG Patch TOP SCH (08:41)
[2017-11-17] MEDS ORDERED: Insulin Aspart 100 Units/ML 3 ML Pen SUBCUT SCH (09:00)
[2017-11-17] MEDS: BUPROPION 100 MG PO SCH ×2 (16:53→20:53)
[2017-11-17] MEDS: Insulin Aspart 100 Units/ML 3 ML Pen SUBCUT SCH ×2 (17:13→20:51)
[2017-11-17] MEDS ORDERED: Simvastatin 10 MG Tab PO SCH (21:00)
--- NOTE | 2017-11-17 22:36 | PCM.PN ---
- General Info Date of Service: 11/17/17 Subjective Update: MR. Tavares is a 72 year old male being seen for his subsequent hospital stay. started on IV antibiotics for the cellulitis. xray did not show any osteomyelitis. also noted some sores on the legs. he has no new physical complaints. tolerating meals. Functional Status: Reports: Pain Controlled, Tolerating Diet - Patient Data Vitals - Most Recent: Last Vital Signs Temp 99.3 F 11/17/17 20:00 Pulse 77 11/17/17 20:00 Resp 18 11/17/17 20:00 BP 149/72 H 11/17/17 20:00 Pulse Ox 98 11/17/17 20:00 Weight - Most Recent: 221 lb 1.6 oz I&O - Last 24 Hours: Intake & Output 11/17/17 11/17/17 11/17/17 06:59 14:59 22:59 Intake Total 723 091 3523 Balance 731 [id number] [id number] Lab Results Last 24 Hours: Laboratory Results - last 24 hr 11/16/17 11/16/17 11/17/17 Range/Units 21:58 21:58 08:01 Sodium 133 L (135-145) mmol/L Potassium 3.9 (3.6-5.0) mmol/L Chloride 100 L (101-111) mmol/L Carbon Dioxide 26.0 (21.0-31.0) mmol/L Anion Gap 10.9 BUN 22 H (7-18) mg/dL Creatinine 1.2 (0.6-1.3) mg/dL Est Cr Clr Drug Dosing 54.89 mL/min Estimated GFR (MDRD) 59 BUN/Creatinine Ratio 18.33 Glucose 165 H (74-105) mg/dL POC Glucose 149 H (83-110) mg/dl Lactic Acid 1.0 (0.5-2.2) mmol/L Calcium 8.5 (8.4-10.2) mg/dl Total Bilirubin 0.7 (0.2-1.0) mg/dL AST 16 (10-42) IU/L ALT 14 (10-60) IU/L Alkaline Phosphatase 90 (42-121) IU/L Total Protein 6.7 (6.7-8.2) g/dl Albumin 3.5 (3.2-5.5) g/dl Globulin 3.2 Albumin/Globulin Ratio 1.09 08/20/18 08/20/18 08/20/18 Range/Units 11:19 16:45 20:43 Sodium (135-145) mmol/L Potassium (3.6-5.0) mmol/L Chloride (101-111) mmol/L Carbon Dioxide (21.0-31.0) mmol/L Anion Gap BUN (7-18) mg/dL Creatinine (0.6-1.3) mg/dL Est Cr Clr Drug Dosing mL/min Estimated GFR (MDRD) BUN/Creatinine Ratio Glucose (74-105) mg/dL POC Glucose 166 H 224 H 370 H (83-110) mg/dl Lactic Acid (0.5-2.2) mmol/L Calcium (8.4-10.2) mg/dl Total Bilirubin (0.2-1.0) mg/dL AST (10-42) IU/L ALT (10-60) IU/L Alkaline Phosphatase (42-121) IU/L Total Protein (6.7-8.2) g/dl Albumin (3.2-5.5) g/dl Globulin Albumin/Globulin Ratio Martin Results Last 24 Hours: Microbiology 11/16/17 21:58 Aerobic Blood Culture - Preliminary Blood NO GROWTH AFTER 1 DAY Anaerobic Blood Culture - Preliminary NO GROWTH AFTER 1 DAY Med Orders - Current: Current Medications Acetaminophen (Tylenol) 650 mg PO Q4H PRN PRN Reason: Pain (Mild 1-3)/fever Last Admin: 11/17/17 19:10 Dose: 650 mg Aspirin (Ecotrin) 325 mg PO DAILY [facility] Last Admin: 11/17/17 08:37 Dose: 325 mg Cholecalciferol (Vitamin D3) 2,000 units PO DAILY [facility] Last Admin: 11/17/17 08:39 Dose: 2,000 units Citalopram Hydrobromide (Celexa) 40 mg PO DAILY [facility] Last Admin: 11/17/17 08:39 Dose: 40 mg Enoxaparin Sodium (Lovenox) 40 mg SUBCUT DAILY@2100 [facility] Last Admin: 11/17/17 20:50 Dose: 40 mg Ferrous Sulfate (Ferrous Sulfate) 325 mg PO BID [facility] Last Admin: 11/17/17 20:49 Dose: 325 mg Furosemide (Lasix) 20 mg PO DAILY [facility] Last Admin: 11/17/17 08:38 Dose: 20 mg Gabapentin (Neurontin) 1,200 mg PO TID [facility] Last Admin: 11/17/17 20:50 Dose: 1,200 mg Sodium Chloride (Normal Saline) 1,000 mls @ 75 mls/hr IV ASDIRECTED [facility] Last Admin: 11/17/17 18:18 Dose: 75 mls/hr Levofloxacin/Dextrose 500 mg/ (Premix) 100 mls @ 100 mls/hr IV Q24H [facility] Last Admin: 11/17/17 00:52 Dose: 100 mls/hr Vancomycin HCl 1.25 gm/ Sodium (Chloride) 250 mls @ 166.667 mls/hr IV Q12H [facility] Last Admin: 11/17/17 13:10 Dose: 166.667 mls/hr Insulin Aspart (Novolog) 0 unit SUBCUT ACBED [facility]; Protocol Last Admin: 11/17/17 20:51 Dose: 10 units Lidocaine (Lidoderm 5%) 700 mg TOP DAILY [facility] Last Admin: 11/17/17 08:41 Dose: 700 mg Lisinopril (Prinivil) 5 mg PO DAILY [facility] Last Admin: 11/17/17 08:37 Dose: 5 mg Metoprolol Succinate (Toprol Xl) 25 mg PO DAILY [facility] Last Admin: 11/17/17 08:38 Dose: 25 mg Miscellaneous Information (Remove Patch) 1 ea TRDERM DAILY@2100 [facility] Last Admin: 11/17/17 20:54 Dose: Not Given Mometasone Furoate/Formoterol Fumar (Dulera 200-5 Mcg) 2 puff IH BIDRT [facility] Last Admin: 11/17/17 17:12 Dose: 2 puff Oxycodone/Acetaminophen (Percocet 325-5 Mg) 1 tab PO Q4H PRN PRN Reason: Pain (moderate 4-6) Pantoprazole Sodium (Protonix) 40 mg PO ACBREAKFAST [facility] Last Admin: 11/17/17 05:40 Dose: 40 mg Bupropion [ Wellbutrin] 100 Mg * *Pt's Own Med 0 each PO BID [facility] Last Admin: 11/17/17 20:53 Dose: 1 each Alendronate 70 Mg (Tab Pt's Own Med) 0 each PO ACBREAKFAST [facility] Simvastatin (Zocor) 20 mg PO BEDTIME [facility] Last Admin: 11/17/17 20:54 Dose: 20 mg Vancomycin HCl (Pharmacy To Dose - Vancomycin) 1 dose .XX ASDIRECTED [facility] Zolpidem Tartrate (Ambien) 5 mg PO BEDTIME PRN PRN Reason: Sleep Discontinued Medications Vancomycin HCl 1 gm/ Sodium (Chloride) 250 mls @ 167 mls/hr IV Q24H [facility] Last Admin: 11/17/17 07:15 Dose: Not Given Vancomycin HCl 1.5 gm/ Sodium (Chloride) 500 mls @ 333.333 mls/hr IV Q12H [facility] Insulin Aspart (Novolog) 0 unit SUBCUT QID [facility]; Protocol Last Admin: 11/17/17 08:41 Dose: Not Given - Exam General: Alert, Oriented Lungs: Clear to Auscultation, Normal Respiratory Effort Cardiovascular: Regular Rate, Regular Rhythm GI/Abdominal Exam: Normal Bowel Sounds, Soft, Non-Tender Skin: Other (area of redness and tenderness ont he medial aspect of the left foot, no fluctuance noted. ) - Problem List Review Problem List Initiated/Reviewed/Updated: Yes - My Orders Last 24 Hours: My Active Orders 11/17/17 11:12 OT Evaluation and Treatment [CONS] Routine PT Evaluation and Treatment [CONS] Routine 11/18/17 06:00 Patient's Own Medication [Ptom] 0 each PO ACBREAKFAST - Plan Plan:: continue IV antibiotic area has been marked. will have area elevate. will have PT and OT evaluate the patient due to falls. otherwise, he remains hemodynamically stable.
[2017-11-18] MEDS: Pantoprazole 40 MG Tab.CR PO SCH (05:54)
[2017-11-18] MEDS ORDERED: ALENDRONATE 70 MG PO SCH (06:00)
[2017-11-18] MEDS: Formoterol/Mometasone 200-5 MCG 8.8 GM Inhaler IH SCH (08:33)
[2017-11-18] MEDS: BUPROPION 100 MG PO SCH (08:33)
[2017-11-18] MEDS: Cholecalciferol (Vitamin D3) 400 Unit Tab PO SCH (08:35)
[2017-11-18] MEDS: Lidocaine 5% 700 MG Patch TOP SCH (08:35)
[2017-11-18] MEDS: Ferrous Sulfate 325 MG Tab PO SCH (08:35)
[2017-11-18] MEDS: Lisinopril 5 MG Tab PO SCH (08:36)
[2017-11-18] MEDS: Metoprolol Succinate 25 MG Tab.ER PO SCH (08:36)
[2017-11-18] MEDS: Gabapentin 400 MG Cap PO SCH ×2 (08:36→14:27)
[2017-11-18] MEDS: Furosemide 20 MG Tab PO SCH (08:37)
[2017-11-18] MEDS: Aspirin 325 MG Tab.EC PO SCH (08:37)
[2017-11-18] MEDS: Citalopram 20 MG Tab PO SCH (08:37)
[2017-11-18] MEDS: Insulin Aspart 100 Units/ML 3 ML Pen SUBCUT SCH ×2 (08:42→12:39)
[2017-11-18] MEDS: Sodium Chloride 0.9% 1,000 ML IV SCH (10:04)
[2017-11-18 14:40] VITALS: BP 149/70
--- NOTE | 2017-11-19 16:16 | DISCH ---
FINAL DIAGNOSES: 1. Cellulitis, left foot. 2. Diabetes mellitus. 3. Recurrent falls. 4. History of coronary artery disease. 5. History of chronic obstructive pulmonary disease. BRIEF HISTORY AND PHYSICAL EXAMINATION: The patient is a 72-year-old male admitted because of a fall and hit his head and also was complaining of left foot pain, was noted to have cellulitis in the left foot. Other comorbidities of the patient includes osteoporosis, compression fracture, diabetes, hypertension, and coronary artery disease. Upon admission, vital signs were stable. It was noted that he has these redness, mild swelling, and tenderness in the left foot in the plantar aspect that is consistent with cellulitis. LABORATORY AND DIAGNOSTIC DATA: Initial workup showed WBC of 10.1, hemoglobin 12.2, and platelets 151. Basic metabolic panel; sodium 133, GFR of 59, and creatinine 1.2. . CAT scan of the head showed chronic ischemic demyelination, which is stable. 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 Otherwise, no acute findings. X-ray of the left foot. No evidence of fracture or osteomyelitis. HOSPITAL COURSE: The patient was admitted to medical-surgical bed. The patient was started on IV vancomycin and IV Levaquin. He remained afebrile during his stay. Microbiologic studies did not show any growth on blood culture. The area was noted to be improving. Given the falls, he was referred to Occupational Therapy and Physical Therapy for evaluation, and it was deemed that he is at his baseline. He lives at his home with his , who takes care of him and assist with some of the ADLs. He also has a walker at home. He has a daughter who lives nearby and checks on him and who brings him to his appointment. PHYSICAL EXAMINATION: Vital Signs: On discharge, blood pressure 149/70, heart rate of 73 beats per minute, respirations 20 breaths per minute, oxygen saturation 100%, and temperature 98.5. General Appearance: Awake distress. Chest: Symmetric chest expansion. Lungs: Bilateral air entry. Cardiovascular System: Regular rate and rhythm. Abdomen: Soft. Normoactive bowel sounds. Extremities: Area of redness on the plantar aspect of the left foot. No tenderness. DISCHARGE INSTRUCTIONS: The patient is stable to be discharged home to continue and finish doxycycline. Also do warm compress to the affected area. In the event this pops, to apply topical antibiotic, dry the area, cover it. He has a scheduled appointment with his provider on 11/19. The patient has been reassured to come back to the emergency room if with emergent health concerns. MODL /[id number]
== END 2017-11-18 16:40 | disposition home health service (06) | DRG 603 ==
LOC: DL.ED 20:50 → DL.MS 23:38 → UNDOADMIN 23:38 → DL.MS 23:42
PROVIDERS: ADMIT Internal Medicine; ATTEND Internal Medicine
DX: L03.116 Cellulitis of left lower limb (principal); M80.00XA Age-related osteoporosis with current pathological fracture, unspecified site, initial encounter for fracture; I25.10 Atherosclerotic heart disease of native coronary artery without angina pectoris; J44.9 Chronic obstructive pulmonary disease, unspecified; E11.40 Type 2 diabetes mellitus with diabetic neuropathy, unspecified; F17.210 Nicotine dependence, cigarettes, uncomplicated; Z91.81 History of falling; K21.9 Gastro-esophageal reflux disease without esophagitis; I10 Essential (primary) hypertension; Z86.73 Personal history of transient ischemic attack (TIA), and cerebral infarction without residual deficits; Z79.4 Long term (current) use of insulin; Z79.899 Other long term (current) drug therapy; E66.9 Obesity, unspecified; Z68.30 Body mass index [BMI] 30.0-30.9, adult
CPT/HCPCS: 36415; 70450; 73620-LT; 80053; 82962; 83605; 85025; 87040; 97162-GP; 97166-GO; 97530-GP; 99283; 99285; A9270-GY; J1650; J1815-GY; J1956; J3370; J7030; J7050

== ENCOUNTER 2018-05-25 19:57 | Observation (INO) | payer OTHER, MEDICARE ==
[2018-05-25 20:50] LABS: ANION GAP 15.7; CHLORIDE,CL 95 mmol/L (101-111); SODIUM,NA 131 mmol/L (135-145)
[2018-05-25] MEDS ORDERED: Furosemide 40 MG/4 ML VIAL IVPUSH ONE (22:37)
[2018-05-26] MEDS ORDERED: Sodium Chloride 0.9% 10 ML Syringe FLUSH PRN (00:27)
--- NOTE | 2018-05-26 00:41 | PCM.HP ---
H&P History of Present Illness - General Date of Service: 05/26/18 Admit Problem/Dx: Admission Diagnosis/Problem Admission Diagnosis/Problem Back pain Source of Information: Patient, Family - History of Present Illness Initial Comments - Free Text/Narative: 73 yo M with PMH of dementia, CHF, COPD, DM2, who p/w lower extremity redness and swelling History is limited by the patient's dementia. Additional history obtained from the patient's daughter at the bedside. Bilateral lower extremity swelling and redness noted in the last week. First had gradual onset of leg swelling and then in the past 2-3 days this has become red and tender. Also has excoriations on bilateral lower extremities but no notable drainage of pus No fever, no CP, no SOB, no nausea or vomiting Has been more fatigued recently Noticed black stools, but is on iron tabs and occult blood in stool done in the ED was negative. Hb was also normal. - Related Data Allergies/Adverse Reactions: Allergies Allergy/AdvReac Type Severity Reaction Status Date / Time No Known Allergies Allergy Verified 05/25/18 20:49 Home Medications: Home Meds Acetaminophen [Mapap] 650 mg PO TID PRN 03/12/16 [History] Citalopram [Celexa] 40 mg PO DAILY 03/12/16 [History] Gabapentin [Neurontin] 1,200 mg PO TID 03/12/16 [History] Simvastatin [Zocor] 20 mg PO BEDTIME 03/12/16 [History] buPROPion [Wellbutrin] 100 mg PO BID 03/12/16 [History] metFORMIN HCl [Metformin HCl] 500 mg PO DAILY 03/12/16 [History] Albuterol Sulfate [Proair Respiclick] 1 puff INH Q6H PRN 07/22/16 [History] Alendronate [Fosamax] 70 mg PO Q7D@0600 07/22/16 [History] Budesonide/Formoterol [Symbicort 160-4.5 MCG] 2 puff INH BID 07/22/16 [History] Fluocinonide 1 applic TP BID PRN 07/22/16 [History] Fluticasone Propionate [Allergy Relief] 2 spray NASBOTH DAILY PRN 07/22/16 [ History] Insulin NPH/Insulin Reg,Human [NovoLIN 70-30] 40 unit SUBCUT QAM 07/22/16 [ History] Lidocaine 5% [Lidoderm 5%] 700 mg TOP DAILY 07/22/16 [History] Loratadine [Allergy] 10 mg PO DAILY PRN 07/22/16 [History] Metoprolol Succinate 25 mg PO DAILY 07/22/16 [History] Pantoprazole Sodium 40 mg PO DAILY 07/22/16 [History] Zolpidem Tartrate 5 mg PO BEDTIME PRN 07/22/16 [History] Aspirin [Aspirin EC] 325 mg PO BEDTIME 05/08/17 [History] Cholecalciferol (Vitamin D3) [Vitamin D3] 2,000 units PO DAILY 05/08/17 [History ] Ferrous Sulfate 325 mg PO BID 05/08/17 [History] Non-Formulary Medication [NF Drug] 1 drop EYEBOTH QID PRN 05/08/17 [History] Furosemide [Lasix] 20 mg PO DAILY #30 tablet 05/10/17 [Rx] Insuln Asp Prot/Insulin Aspart [NovoLOG Mix 70-30] 36 units SUBCUT QPM 03/11/18 [History] Lisinopril 10 mg PO DAILY 03/11/18 [History] Melatonin 3 mg PO BEDTIME PRN 03/11/18 [History] Amoxicillin/Potassium Clav [Augmentin 500-125 Tablet] 1 each PO TID #21 tablet 03/15/18 [Rx] Sodium Chloride 2 gm PO BID #10 tablet 03/15/18 [Rx] Past Medical History HEENT History: Reports: Cataract, Impaired Vision, Other (See Below) Other HEENT History: Wears reading glasses, and has dry eyes Cardiovascular History: Reports: Heart Failure, High Cholesterol, Hypertension, Other (See Below) Other Cardiovascular History: heart monitor implant Respiratory History: Reports: COPD, Pneumonia, Recurrent Gastrointestinal History: Reports: GERD Genitourinary History: Reports: None Musculoskeletal History: Reports: None Neurological History: Reports: CVA, Neuropathy, Diabetic Psychiatric History: Reports: Depression, PTSD Endocrine/Metabolic History: Reports: Diabetes, Type II, Obesity/BMI 30+ Hematologic History: Reports: None Immunologic History: Reports: None Oncologic (Cancer) History: Reports: None Dermatologic History: Reports: Other (See Below) Other Dermatologic History: Open sores to lower legs- uses Lidex cream prn - Infectious Disease History Infectious Disease History: Reports: Chicken Pox, Measles, Mumps - Past Surgical History HEENT Surgical History: Reports: Cataract Surgery Cardiovascular Surgical History: Reports: None, Other (See Below) 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 General: Denies: Fever HEENT: Reports: No Symptoms Pulmonary: Reports: No Symptoms Cardiovascular: Reports: No Symptoms Gastrointestinal: Reports: No Symptoms Musculoskeletal: Reports: Other (as in HPI) Skin: Reports: Other (as in HPI) Psychiatric: Reports: Other (baseline dementia) Exam - Exam Exam: See Below - Vital Signs Vital Signs: Last Vital Signs Temp 36.2 C 05/25/18 20:03 Pulse 91 05/25/18 20:03 Resp 18 05/25/18 20:03 BP 140/96 H 05/25/18 20:03 Pulse Ox 100 05/25/18 20:03 Weight: 95.527 kg - Exam General: Alert, Oriented, Other (mildly confused) HEENT: Conjunctiva Clear Neck: Supple Lungs: Clear to Auscultation Cardiovascular: Regular Rate, Regular Rhythm GI/Abdominal Exam: Normal Bowel Sounds Extremities: Pedal Edema, Redness (lower ext redness) - Patient Data Lab Results Last 24 hrs: Laboratory Results - last 24 hr 05/25/18 05/25/18 05/25/18 Range/Units 20:25 20:25 20:25 WBC 10.0 (5.0-10.0) 10^3/uL RBC 4.49 L (4.6-6.2) 10^6/uL Hgb 14.6 D (14.0-18.0) g/dL Hct 43.3 (40.0-54.0) % MCV 96.4 (80-100) fL MCH 32.5 (27.0-34.0) pg MCHC 33.7 (33.0-35.0) g/dL Plt Count 141 L (150-450) 10^3/uL Neut % (Auto) 69.6 (42.2-75.2) % Lymph % (Auto) 13.8 L (20.5-50.1) % Sumner % (Auto) 8.8 H (2-8) % Eos % (Auto) 7.6 H (1.0-3.0) % Baso % (Auto) 0.2 (0.0-1.0) % Sodium 131 L (135-145) mmol/L Potassium 3.7 (3.6-5.0) mmol/L Chloride 95 L (101-111) mmol/L Carbon Dioxide 24.0 (21.0-31.0) mmol/L Anion Gap 15.7 BUN 14 (7-18) mg/dL Creatinine 1.1 (0.6-1.3) mg/dL Est Cr Clr Drug Dosing 58.02 mL/min Estimated GFR (MDRD) > 60 BUN/Creatinine Ratio 12.72 Glucose 195 H (74-105) mg/dL Calcium 8.7 (8.4-10.2) mg/dl Total Bilirubin 1.0 (0.2-1.0) mg/dL AST 19 (10-42) IU/L ALT 16 (10-60) IU/L Alkaline Phosphatase 110 (42-121) IU/L CK-MB (CK-2) 4.10 (0.4-4.7) ng/mL Troponin I < 0.02 (0.00-0.02) ng/ml B-Natriuretic Peptide 127 H (0-100) pg/ml Total Protein 7.9 (6.7-8.2) g/dl Albumin 3.7 (3.2-5.5) g/dl Globulin 4.2 Albumin/Globulin Ratio 0.88 Amylase 14 L (28-100) U/L Urine Color (YELLOW) Urine Appearance (CLEAR) Urine pH (5.0-9.0) Ur Specific [place] (1.005-1.030) Urine Protein (NEGATIVE) Urine Glucose (UA) (NEGATIVE) Urine Ketones (NEGATIVE) Urine Occult Blood (NEGATIVE) Urine Nitrite (NEGATIVE) Urine Bilirubin (NEGATIVE) Urine Urobilinogen (0.2-1.0) mg/dL Ur Leukocyte Esterase (NEGATIVE) Urine RBC /HPF Urine WBC (0-5/HPF) /HPF Ur Epithelial Cells /HPF Amorphous Sediment (0/HPF) /HPF Urine Bacteria (0-FEW/HPF) /HPF Urine Mucus /LPF Ethyl Alcohol mg/dL 05/25/18 05/25/18 Range/Units 20:25 21:47 WBC (5.0-10.0) 10^3/uL RBC (4.6-6.2) 10^6/uL Hgb (14.0-18.0) g/dL Hct (40.0-54.0) % MCV (80-100) fL MCH (27.0-34.0) pg MCHC (33.0-35.0) g/dL Plt Count (150-450) 10^3/uL Neut % (Auto) (42.2-75.2) % Lymph % (Auto) (20.5-50.1) % Sumner % (Auto) (2-8) % Eos % (Auto) (1.0-3.0) % Baso % (Auto) (0.0-1.0) % Sodium (135-145) mmol/L Potassium (3.6-5.0) mmol/L Chloride (101-111) mmol/L Carbon Dioxide (21.0-31.0) mmol/L Anion Gap BUN (7-18) mg/dL Creatinine (0.6-1.3) mg/dL Est Cr Clr Drug Dosing mL/min Estimated GFR (MDRD) BUN/Creatinine Ratio Glucose (74-105) mg/dL Calcium (8.4-10.2) mg/dl Total Bilirubin (0.2-1.0) mg/dL AST (10-42) IU/L ALT (10-60) IU/L Alkaline Phosphatase (42-121) IU/L CK-MB (CK-2) (0.4-4.7) ng/mL Troponin I (0.00-0.02) ng/ml B-Natriuretic Peptide (0-100) pg/ml Total Protein (6.7-8.2) g/dl Albumin (3.2-5.5) g/dl Globulin Albumin/Globulin Ratio Amylase (28-100) U/L Urine Color Yellow (YELLOW) Urine Appearance Slightly cloudy (CLEAR) Urine pH 6.0 (5.0-9.0) Ur Specific [place] 1.025 (1.005-1.030) Urine Protein 30 H (NEGATIVE) Urine Glucose (UA) 100 H (NEGATIVE) Urine Ketones Negative (NEGATIVE) Urine Occult Blood Trace-intact H (NEGATIVE) Urine Nitrite Negative (NEGATIVE) Urine Bilirubin Negative (NEGATIVE) Urine Urobilinogen 2.0 H (0.2-1.0) mg/dL Ur Leukocyte Esterase Negative (NEGATIVE) Urine RBC 5-10 H /HPF Urine WBC 0-5 (0-5/HPF) /HPF Ur Epithelial Cells Rare /HPF Amorphous Sediment Rare (0/HPF) /HPF Urine Bacteria Rare (0-FEW/HPF) /HPF Urine Mucus Occasional /LPF Ethyl Alcohol < 5 mg/dL Result Diagrams: 05/25/18 20:25 05/25/18 20:25 Martin Results Last 24 hrs: Microbiology 05/25/18 20:04 Stool Occult Blood (MARTIN) - Final Stool / Feces Problem List Initiated/Reviewed/Updated: Yes Orders Last 24hrs: Active Orders 24 hr Category Date Time Status Patient Status [ADT] Routine ADT 05/26/18 00:27 Ordered Ambulate [RC] ASDIRECTED Care 05/26/18 00:27 Ordered Blood Glucose Check, Bedside [RC] QIDACANDBED Care 05/26/18 00:32 Ordered EKG 12 Lead [EKG Documentation Completion] [RC] URGENT Care 05/25/18 20:17 Active Height and Weight [RC] DAILY Care 05/26/18 00:27 Ordered Oxygen Therapy [RC] PRN Care 05/26/18 00:27 Ordered Peripheral IV Care [RC] . DIRECTED Care 05/26/18 00:27 Ordered Up With Assistance [RC] ASDIRECTED Care 05/26/18 00:27 Ordered VTE/DVT Education [RC] PER UNIT ROUTINE Care 05/26/18 00:27 Ordered Vital Signs [RC] Q4H Care 05/26/18 00:27 Ordered OT Evaluation and Treatment [CONS] Routine Cons 05/26/18 00:27 Ordered PT Evaluation and Treatment [CONS] Routine Cons 05/26/18 00:27 Ordered Regular Diet [DIET] Diet 05/26/18 Breakfast Ordered Venous Doppler Lwr Ext Bi [US] Routine Exams 05/26/18 00:28 Ordered Heparin Sodium Med 05/26/18 00:45 Ordered 5,000 units SUBCUT Q8H Insulin Lispro [HumaLOG] Med 05/26/18 08:00 Ordered See Protocol SUBCUT TIDMEALS Sodium Chloride 0.9% [Saline Flush] Med 05/26/18 00:27 Ordered 10 ml FLUSH ASDIRECTED PRN ceFAZolin [Ancef] 1 gm Med 05/26/18 00:32 Ordered Premix Bag 1 bag IV Q8HR Peripheral IV Insertion Adult [OM.PC] Routine Oth 05/26/18 00:27 Ordered Saline Lock Insert [OM.PC] Routine Oth 05/26/18 00:27 Ordered Code Status [Resuscitation Status] Routine Resus Stat 05/26/18 00:28 Ordered Medication Orders Heparin Sodium (Porcine) (Heparin Sodium) 5,000 units SUBCUT Q8H ALOK Cefazolin Sodium/Dextrose 1 gm (/ Premix) 50 mls @ 100 mls/hr IV Q8HR ALOK Insulin Human Lispro (Humalog) 0 unit SUBCUT TIDMEALS ALOK; Protocol Sodium Chloride (Saline Flush) 10 ml FLUSH ASDIRECTED PRN PRN Reason: Keep Vein Open Assessment/Plan Comment:: #Lower ext swelling, redness #Lower ext cellulitis start IV ancef 1g q8 hrs LE USS bilateral IV lasix #Hx of COPD continue home meds PRN duonebs #CHF IV lasix 20 mg BID Fluid restriction, salt restriction strict input and output monitoring f/u with cardiology clinic #DVT ppx SC heparin #FC
[2018-05-26] MEDS ORDERED: Albuterol/Ipratropium 3.0-0.5 MG/3 ML Neb Soln NEB PRN (00:42)
[2018-05-26] MEDS: ceFAZolin 1 GM in Premix Bag 1 BAG IV SCH ×2 (01:26→09:14)
[2018-05-26] MEDS: Heparin Sodium 5,000 Units/ML Vial SUBCUT SCH ×2 (01:30→09:14)
--- NOTE | 2018-05-26 05:50 | EDM.PDOC ---
ED HPI GENERAL MEDICAL PROBLEM - General Chief Complaint: General Stated Complaint: AMBULANCE Time Seen by Provider: 05/25/18 20:05 Source of Information: Reports: Patient, Family History Limitations: Reports: No Limitations - History of Present Illness INITIAL COMMENTS - FREE TEXT/NARRATIVE: ED via [facility] with report of weakness and black stools. Patient denies pain, no vomiting. Daughter reports patient has hx of early dementia, increasing visual hallucinations at night, Has had weakness past 2 months, transfers only, a couple of falls none recent, Hospitalized in February for pneumonia and not regained strength. lower legs swollen and not improving with elevation. Daughter states he has been taking Lasix and does seem to have urine output after. Appetite has been good. Cough increased this week. Non productive. No fevers or chills. - Related Data Allergies Allergy/AdvReac Type Severity Reaction Status Date / Time No Known Allergies Allergy Verified 05/26/18 00:50 Home Meds: Home Meds Acetaminophen [Mapap] 650 mg PO TID PRN 03/12/16 [History] Citalopram [Celexa] 40 mg PO DAILY 03/12/16 [History] Gabapentin [Neurontin] 1,200 mg PO TID 03/12/16 [History] Simvastatin [Zocor] 20 mg PO BEDTIME 03/12/16 [History] buPROPion [Wellbutrin] 100 mg PO BID 03/12/16 [History] metFORMIN HCl [Metformin HCl] 500 mg PO DAILY 03/12/16 [History] Albuterol Sulfate [Proair Respiclick] 1 puff INH Q6H PRN 07/22/16 [History] Alendronate [Fosamax] 70 mg PO Q7D@0600 07/22/16 [History] Budesonide/Formoterol [Symbicort 160-4.5 MCG] 2 puff INH BID 07/22/16 [History] Fluocinonide 1 applic TP BID PRN 07/22/16 [History] Fluticasone Propionate [Allergy Relief] 2 spray NASBOTH DAILY PRN 07/22/16 [ History] Insulin NPH/Insulin Reg,Human [NovoLIN 70-30] 40 unit SUBCUT QAM 07/22/16 [ History] Lidocaine 5% [Lidoderm 5%] 700 mg TOP DAILY 07/22/16 [History] Loratadine [Allergy] 10 mg PO DAILY PRN 07/22/16 [History] Metoprolol Succinate 25 mg PO DAILY 07/22/16 [History] Pantoprazole Sodium 40 mg PO DAILY 07/22/16 [History] Zolpidem Tartrate 5 mg PO BEDTIME PRN 07/22/16 [History] Aspirin [Aspirin EC] 325 mg PO BEDTIME 05/08/17 [History] Cholecalciferol (Vitamin D3) [Vitamin D3] 2,000 units PO DAILY 05/08/17 [History ] Ferrous Sulfate 325 mg PO BID 05/08/17 [History] Non-Formulary Medication [NF Drug] 1 drop EYEBOTH QID PRN 05/08/17 [History] Furosemide [Lasix] 20 mg PO DAILY #30 tablet 05/10/17 [Rx] Insuln Asp Prot/Insulin Aspart [NovoLOG Mix 70-30] 36 units SUBCUT QPM 03/11/18 [History] Lisinopril 10 mg PO DAILY 03/11/18 [History] Melatonin 3 mg PO BEDTIME PRN 03/11/18 [History] Sodium Chloride 2 gm PO BID #10 tablet 03/15/18 [Rx] Past Medical History HEENT History: Reports: Cataract, Impaired Vision, Other (See Below) Other HEENT History: Wears reading glasses, and has dry eyes Cardiovascular History: Reports: Heart Failure, High Cholesterol, Hypertension, Other (See Below) Other Cardiovascular History: heart monitor implant Respiratory History: Reports: COPD, Pneumonia, Recurrent Gastrointestinal History: Reports: GERD Genitourinary History: Reports: None Musculoskeletal History: Reports: None Neurological History: Reports: CVA, Neuropathy, Diabetic Psychiatric History: Reports: Depression, PTSD Endocrine/Metabolic History: Reports: Diabetes, Type II, Obesity/BMI 30+ Hematologic History: Reports: None Immunologic History: Reports: None Oncologic (Cancer) History: Reports: None Dermatologic History: Reports: Other (See Below) Other Dermatologic History: Open sores to lower legs- uses Lidex cream prn - Infectious Disease History Infectious Disease History: Reports: Chicken Pox, Measles, Mumps - Past Surgical History HEENT Surgical History: Reports: Cataract Surgery Cardiovascular Surgical History: Reports: None, Other (See Below) 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 insertion cardiac cath technician Musculoskeletal Surgical History: Reports: Other (See Below) Other Musculoskeletal Surgeries/Procedures:: ankle surgery Social & Family History - Family History Family Medical History: Noncontributory Oncologic: Reports: Prostate - Tobacco Use Smoking Status *Q: Heavy Tobacco Smoker Years of Tobacco use: 55 Packs/Tins Daily: 0.8 Second Hand Smoke Exposure: Yes - Caffeine Use Caffeine Use: Reports: Coffee Other Caffeine Use: 3 cups daily - Recreational Drug Use Recreational Drug Use: No ED ROS GENERAL - Review of Systems Review Of Systems: ROS reveals no pertinent complaints other than HPI. ED EXAM, GENERAL - Physical Exam Exam: See Below Exam Limited By: No Limitations General Appearance: Alert, No Apparent Distress Eye Exam: Bilateral Eye: EOMI, PERRL Ears: Normal External Exam, Normal TMs Nose: Normal Inspection Throat/Mouth: Normal Inspection Head: Atraumatic, Normocephalic Neck: Normal Inspection Respiratory/Chest: No Respiratory Distress, Decreased Breath Sounds (bases) Cardiovascular: Normal Peripheral Pulses, Regular Rate, Rhythm. No: No Edema GI/Abdominal: Normal Bowel Sounds Rectal (Males) Exam: Heme - Stool, Other (incontinenet) Back Exam: Normal Inspection Extremities: Pedal Edema, Redness (lower ext redness) Neurological: Alert, Oriented, Normal Cognition Psychiatric: Normal Affect, Normal Mood Skin Exam: Warm, Dry, Normal Color, Increased Warmth (left, anterior gibbs red) Course - Vital Signs Last Recorded V/S: Last Vital Signs Temp 99.2 F 05/26/18 00:27 Pulse 103 H 05/26/18 00:27 Resp 18 05/26/18 00:27 BP 126/70 05/26/18 00:27 Pulse Ox 99 05/26/18 00:27 - Orders/Labs/Meds Orders: Active Orders 24 hr Category Date Time Status EKG 12 Lead [EKG Documentation Completion] [RC] URGENT Care 05/25/18 20:17 Active Medication Orders Albuterol/Ipratropium (Duoneb 3.0-0.5 Mg/3 Ml) 3 ml NEB Q6H PRN PRN Reason: Shortness of Breath Furosemide (Lasix) 20 mg IVPUSH BID [facility] Heparin Sodium (Porcine) (Heparin Sodium) 5,000 units SUBCUT Q8H [facility] Last Admin: 05/26/18 01:30 Dose: 5,000 units Cefazolin Sodium/Dextrose 1 gm (/ Premix) 50 mls @ 100 mls/hr IV Q8H [facility] Last Admin: 05/26/18 01:26 Dose: 100 mls/hr Insulin Human Lispro (Humalog) 0 unit SUBCUT TIDMEALS [facility]; Protocol Sodium Chloride (Saline Flush) 10 ml FLUSH ASDIRECTED PRN PRN Reason: Keep Vein Open Last Admin: 05/26/18 01:25 Dose: 10 ml Labs: Laboratory Tests 05/25/18 05/25/18 05/25/18 Range/Units 20:25 20:25 20:25 WBC 10.0 (5.0-10.0) 10^3/uL RBC 4.49 L (4.6-6.2) 10^6/uL Hgb 14.6 D (14.0-18.0) g/dL Hct 43.3 (40.0-54.0) % MCV 96.4 (80-100) fL MCH 32.5 (27.0-34.0) pg MCHC 33.7 (33.0-35.0) g/dL Plt Count 141 L (150-450) 10^3/uL Neut % (Auto) 69.6 (42.2-75.2) % Lymph % (Auto) 13.8 L (20.5-50.1) % Camp % (Auto) 8.8 H (2-8) % Eos % (Auto) 7.6 H (1.0-3.0) % Baso % (Auto) 0.2 (0.0-1.0) % Sodium 131 L (135-145) mmol/L Potassium 3.7 (3.6-5.0) mmol/L Chloride 95 L (101-111) mmol/L Carbon Dioxide 24.0 (21.0-31.0) mmol/L Anion Gap 15.7 BUN 14 (7-18) mg/dL Creatinine 1.1 (0.6-1.3) mg/dL Est Cr Clr Drug Dosing 58.02 mL/min Estimated GFR (MDRD) > 60 BUN/Creatinine Ratio 12.72 Glucose 195 H (74-105) mg/dL Calcium 8.7 (8.4-10.2) mg/dl Total Bilirubin 1.0 (0.2-1.0) mg/dL AST 19 (10-42) IU/L ALT 16 (10-60) IU/L Alkaline Phosphatase 110 (42-121) IU/L CK-MB (CK-2) 4.10 (0.4-4.7) ng/mL Troponin I < 0.02 (0.00-0.02) ng/ml B-Natriuretic Peptide 127 H (0-100) pg/ml Total Protein 7.9 (6.7-8.2) g/dl Albumin 3.7 (3.2-5.5) g/dl Globulin 4.2 Albumin/Globulin Ratio 0.88 Amylase 14 L (28-100) U/L Urine Color (YELLOW) Urine Appearance (CLEAR) Urine pH (5.0-9.0) Ur Specific [place] (1.005-1.030) Urine Protein (NEGATIVE) Urine Glucose (UA) (NEGATIVE) Urine Ketones (NEGATIVE) Urine Occult Blood (NEGATIVE) Urine Nitrite (NEGATIVE) Urine Bilirubin (NEGATIVE) Urine Urobilinogen (0.2-1.0) mg/dL Ur Leukocyte Esterase (NEGATIVE) Urine RBC /HPF Urine WBC (0-5/HPF) /HPF Ur Epithelial Cells /HPF Amorphous Sediment (0/HPF) /HPF Urine Bacteria (0-FEW/HPF) /HPF Urine Mucus /LPF Ethyl Alcohol mg/dL 05/25/18 05/25/18 Range/Units 20:25 21:47 WBC (5.0-10.0) 10^3/uL RBC (4.6-6.2) 10^6/uL Hgb (14.0-18.0) g/dL Hct (40.0-54.0) % MCV (80-100) fL MCH (27.0-34.0) pg MCHC (33.0-35.0) g/dL Plt Count (150-450) 10^3/uL Neut % (Auto) (42.2-75.2) % Lymph % (Auto) (20.5-50.1) % Camp % (Auto) (2-8) % Eos % (Auto) (1.0-3.0) % Baso % (Auto) (0.0-1.0) % Sodium (135-145) mmol/L Potassium (3.6-5.0) mmol/L Chloride (101-111) mmol/L Carbon Dioxide (21.0-31.0) mmol/L Anion Gap BUN (7-18) mg/dL Creatinine (0.6-1.3) mg/dL Est Cr Clr Drug Dosing mL/min Estimated GFR (MDRD) BUN/Creatinine Ratio Glucose (74-105) mg/dL Calcium (8.4-10.2) mg/dl Total Bilirubin (0.2-1.0) mg/dL AST (10-42) IU/L ALT (10-60) IU/L Alkaline Phosphatase (42-121) IU/L CK-MB (CK-2) (0.4-4.7) ng/mL Troponin I (0.00-0.02) ng/ml B-Natriuretic Peptide (0-100) pg/ml Total Protein (6.7-8.2) g/dl Albumin (3.2-5.5) g/dl Globulin Albumin/Globulin Ratio Amylase (28-100) U/L Urine Color Yellow (YELLOW) Urine Appearance Slightly cloudy (CLEAR) Urine pH 6.0 (5.0-9.0) Ur Specific [place] 1.025 (1.005-1.030) Urine Protein 30 H (NEGATIVE) Urine Glucose (UA) 100 H (NEGATIVE) Urine Ketones Negative (NEGATIVE) Urine Occult Blood Trace-intact H (NEGATIVE) Urine Nitrite Negative (NEGATIVE) Urine Bilirubin Negative (NEGATIVE) Urine Urobilinogen 2.0 H (0.2-1.0) mg/dL Ur Leukocyte Esterase Negative (NEGATIVE) Urine RBC 5-10 H /HPF Urine WBC 0-5 (0-5/HPF) /HPF Ur Epithelial Cells Rare /HPF Amorphous Sediment Rare (0/HPF) /HPF Urine Bacteria Rare (0-FEW/HPF) /HPF Urine Mucus Occasional /LPF Ethyl Alcohol < 5 mg/dL Meds: Medications Generic Name Dose Route Start Last Admin Trade Name Freq PRN Reason Stop Dose Admin Albuterol/Ipratropium 3 ml 05/26/18 00:42 Duoneb 3.0-0.5 Mg/3 Ml NEB Q6H PRN Shortness of Breath Furosemide 20 mg 05/26/18 09:00 Lasix IVPUSH BID [facility] Heparin Sodium (Porcine) 5,000 units 05/26/18 01:00 05/26/18 01:30 Heparin Sodium SUBCUT 5,000 units Q8H [facility] Administration Cefazolin Sodium/Dextrose 1 gm 50 mls @ 100 mls/hr 05/26/18 01:00 05/26/18 01 :26 / Premix IV 100 mls/hr Q8H [facility] Administration Insulin Human Lispro 0 unit 05/26/18 08:00 Humalog SUBCUT TIDMEALS [facility] Protocol Sodium Chloride 10 ml 05/26/18 00:27 05/26/18 01:25 Saline Flush FLUSH 10 ml ASDIRECTED PRN Administration Keep Vein Open Discontinued Medications Generic Name Dose Route Start Last Admin Trade Name Leeanna PRN Reason Stop Dose Admin Furosemide 40 mg 05/25/18 22:37 05/25/18 22:44 Lasix IVPUSH 05/25/18 22:38 40 mg NOW ONE Administration - Radiology Interpretation Free Text/Narrative:: Name: ROSINA SMITH Age: 73Years M Date: 05/25/2018 SSN: -- : [id number] Study: XR CHEST 1 VIEW Requesting Physician: JOEL KURTZ Images: 1 Addl Studies: Provided Clinical History: Contrast: Contrast Medium: Contrast Amount: Contrast Method: CONFIDENTIALITY STATEMENT This report is intended only for use by the referring physician, and only in accordance with law. If you received this in error, call [phone]. Page 1 of 1 EXAM: XR Chest, 1 View EXAM DATE/TIME: 05/25/2018 9:30 PM CLINICAL HISTORY: 73 years old, male; Signs and symptoms; Other: Weakness TECHNIQUE: XR of the chest, 1 view. COMPARISON: CR Chest 1V Frontal 03/11/2018 2:42 PM FINDINGS: Lungs: Mild bilateral perihilar and interstitial infiltrates. Pleural space: No pleural effusion. No pneumothorax. Heart/Mediastinum: Cardiomegaly. Tortuous and atherosclerotic thoracic aorta. Bones/joints: Degenerative changes throughout the thoracic spine. IMPRESSION: Possible mild pulmonary edema. Thank you for allowing us to participate in the care of your patient. Dictated and Authenticated by: Marguerite Cobos MD 05/25/2018 10:39 PM Central Time ([place] & [place] - Re-Assessments/Exams Free Text/Narrative Re-Assessment/Exam: 05/26/18 05:51 Dr Terrie [facility] Hospitalist accepting for management cellulitis, edema and weakness. [facility] contacted, recommended local hospitalization, If further determine need for extended stay or testing contact [facility] MOD Departure - Departure Time of Disposition: 23:45 Disposition: Refer to Observation Condition: Good Clinical Impression: Weakness Edema Qualifiers: Edema type: unspecified Qualified Code(s): R60.9 - Edema, unspecified - Discharge Information *PRESCRIPTION DRUG MONITORING PROGRAM REVIEWED*: Not Applicable *COPY OF PRESCRIPTION DRUG MONITORING REPORT IN PATIENT CHANTEL: Not Applicable - My Orders Last 24 Hours: My Active Orders 05/25/18 20:17 EKG 12 Lead [EKG Documentation Completion] [RC] URGENT - Assessment/Plan Last 24 Hours: My Active Orders 05/25/18 20:17 EKG 12 Lead [EKG Documentation Completion] [RC] URGENT
[2018-05-26] MEDS ORDERED: Melatonin 3 MG Tab PO PRN (07:04)
[2018-05-26] MEDS ORDERED: Zolpidem 5 MG Tab PO PRN (07:04)
[2018-05-26] MEDS ORDERED: Loratadine 10 MG Tab PO PRN (07:04)
[2018-05-26] MEDS ORDERED: Acetaminophen 325 MG Tab PO PRN (07:30)
[2018-05-26] MEDS: Insulin Lispro 100 Units/ML 3 ML Vial SUBCUT SCH ×2 (08:09→12:14)
[2018-05-26] MEDS ORDERED: Formoterol/Mometasone 200-5 MCG 8.8 GM Inhaler IH SCH (09:00)
[2018-05-26] MEDS ORDERED: Furosemide 20 MG/2 ML VIAL IVPUSH SCH (09:00)
[2018-05-26] MEDS ORDERED: Pantoprazole 40 MG Tab.CR PO SCH (09:00)
[2018-05-26] MEDS ORDERED: Lisinopril 10 MG Tab PO SCH (09:00)
[2018-05-26] MEDS ORDERED: Citalopram 20 MG Tab PO SCH (09:00)
[2018-05-26] MEDS ORDERED: Non-Formulary Medication 1 Each (Bupropion [Wellbutrin] 100 MG) PO SCH (09:00)
[2018-05-26] MEDS ORDERED: Metoprolol Succinate 25 MG Tab.ER PO SCH (09:00)
[2018-05-26] MEDS ORDERED: Ferrous Sulfate 325 MG Tab PO SCH (09:00)
[2018-05-26] MEDS ORDERED: Cholecalciferol (Vitamin D3) 400 Unit Tab PO SCH (09:00)
[2018-05-26] MEDS: Gabapentin 400 MG Cap PO SCH ×2 (09:13→14:04)
[2018-05-26 14:22] VITALS: BP 93/63
--- NOTE | 2018-05-26 15:13 | DISCH ---
Discharge/Transfer Note to the [facility]. BRIEF HISTORY OF PRESENT ILLNESS: Mr. Villalobos is a 73-year-old gentleman who presented to the Emergency Room last evening. He gave a 1-week history of bilateral lower extremities swelling and redness. At first, the onset was gradual, and then in the last 2 to 3 days, became worse, legs becoming more red and more tender. He was evaluated in the ER and found to have bilateral lower extremity cellulitis and was admitted for IV antibiotics. Mr. 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 He is eligible for VA services and transfer to the [facility]. PAST MEDICAL HISTORY: 1. CHF. 2. COPD. 3. Type 2 diabetes. 4. Mild dementia. It sounds as if he may have chronic venous stasis of the lower extremities, but this is unclear and family was unable to answer this question. PERTINENT LABORATORY AND X-RAY DATA: CBC at the time of admission showed a white count of 10,000 with essentially normal differential. Hemoglobin and hematocrit of 14.6 and 43. Chemistry showed sodium 131, potassium normal, BUN and creatinine of 14 and 1.1 with a GFR of more than 60. LFTs were unremarkable. Troponin was negative at less than 0.02. BNP was 127. Blood sugar at the time of admission was 195 and has been monitored since that time and has been within normal limits between 132 and 155. Urinalysis showed a yellow slightly cloudy urine, trace of blood. Microscopic showed 5 to 10 rbc's, 0 to 5 wbc's, rare bacteria. The patient had stated he had black stools, but he recently started iron, and stool for occult blood was obtained in the Emergency Department and was negative. Single-view chest x-ray was obtained and showed flattening of the bilateral diaphragms, consistent with history of COPD as well as some increased bronchial markings, but no acute infiltrate, no cardiomegaly, no pulmonary venous congestion. HOSPITAL COURSE: Mr. Villalobos was admitted to the inpatient service with the diagnosis of bilateral lower extremity cellulitis. He was started on cefazolin 1 g IV every 8 hours. His usual medications were continued. He was placed on heparin for VTE prophylaxis. He was placed on a consistent carbohydrate diet with sodium restriction as well as fluid restrictions of 1500 mL. Mr. Villalobos has remained hemodynamically stable since admission. He is tolerating treatments. He has requested, however, that he be transferred to the [facility] in [place]. This process was started last night. No beds were available. A bed has become available today and the patient still is requesting to be transferred. PHYSICAL EXAMINATION AT TIME OF DISCHARGE: General: He is lying comfortably in bed. His daughter and granddaughter were present in the room. He is a pleasant gentleman, mildly confused, consistent with his history of mild dementia. Vital Signs: Blood pressure was 93/63, pulse 89, respiratory rate 20, oxygen saturation 97% on room air, temperature 99.5. Weight 206 pounds 9 ounces, height 5 feet 9 inches. HEENT: Unremarkable. ENT was clear. Chest: Showed clear with diminished bilateral breath sounds. Heart: Showed regular rate and rhythm. Abdomen: Benign. Extremities: Showed skin thickening and changes below the knees bilaterally. The skin was rather tough and inflamed, consistent with cellulitis. Of note is the fact that he has multiple excoriations of both lower extremities as well as his thighs and some on the upper arms as well. His daughter states that he constantly scratches, and she tries to keep his nails cut back as much as possible. IMPRESSION: A 73-year-old gentleman presents with bilateral lower extremity cellulitis. He is requesting transfer to the [facility] in [place]. Our nurse telehealth case manager spoke with the hereditary cancer program coordinator, Yahaira, in [place]. I later spoke with Yahaira and we were able to speak with Dr. Riggs, the accepting hospitalist. We reviewed the case and current treatment. Mr. Villalobos will be transferred to Dr. Riggs's care at the [facility]. [facility] will do the ground ambulance transfer. Mr. Villalobos does not require supplemental oxygen and is not on continuous IVs. His next scheduled dose of cefazolin is at 5:00 p.m. this afternoon. CONDITION AT THE TIME OF TRANSFER: Hemodynamically stable. CODE STATUS: During this admission, the patient was a full code. [facility] /[id number]
[2018-05-26] MEDS ORDERED: Aspirin 325 MG Tab.EC PO SCH (21:00)
[2018-05-26] MEDS ORDERED: Simvastatin 10 MG Tab PO SCH (21:00)
== END 2018-05-26 14:45 ==
LOC: DL.ED 19:57 → UNDOADMOB 23:48 → DL.MS 23:48
PROVIDERS: ADMIT Hospitalist; ATTEND Hospitalist
DX: L03.116 Cellulitis of left lower limb (principal); L03.115 Cellulitis of right lower limb; I11.0 Hypertensive heart disease with heart failure; I50.9 Heart failure, unspecified; J44.9 Chronic obstructive pulmonary disease, unspecified; E11.9 Type 2 diabetes mellitus without complications; E66.9 Obesity, unspecified; Z68.31 Body mass index [BMI] 31.0-31.9, adult; F17.200 Nicotine dependence, unspecified, uncomplicated; E78.00 Pure hypercholesterolemia, unspecified; F03.90 Unspecified dementia, unspecified severity, without behavioral disturbance, psychotic disturbance, mood disturbance, and anxiety; Z86.73 Personal history of transient ischemic attack (TIA), and cerebral infarction without residual deficits; Z79.4 Long term (current) use of insulin; Z79.899 Other long term (current) drug therapy
CPT/HCPCS: 36415; 71045; 80053; 81001; 82150; 82272; 82553; 82962; 83880; 84484; 85025; 93005; 96365; 96366; 96372; 96375; 96376; 99285; A9270; G0378; G0480; J0690; J1644; J1815; J1940; 96374